=== PATIENT | male | born 1955 | race African-American/Black ===

== ENCOUNTER 2021-01-01 22:56 | Inpatient (IN) | payer MEDICARE, MEDICAID, SELFPAY ==
--- NOTE | ~2021-01-01 | XR_ITS ---
EXAMINATION: XR fl Dobhoff insert/rad w img DATE: 01/07/2021 14:16 INDICATION: Dobbhoff placement required for bowel prep and subsequent colonoscopy. TECHNIQUE: A Dobbhoff type feeding tube was advanced into the duodenum utilizing intermittent fluoroscopy. Final image demonstrates the feeding tube in position with the weighted tip at the expected location of th e ligament of Treitz. The tube was flushed with 10 mL sterile saline and fixed to the nares with adhe sive tape. 2 fluoroscopic images were recorded. The amount of fluoroscopy time used during this proce dure was 0.9 minutes. There were no immediate complications. Total DAP was 12.66 mGycm^2 FINDINGS/IMPRESSION: Successful fluoroscopy-guided Dobbhoff feeding tube placement with distal tip in the fourth portion o f the duodenum. Reviewed, dictated and finalized at location A.
--- NOTE | ~2021-01-01 | US_ITS ---
EXAMINATION: US paracentesis abd w/image DATE: 01/03/2021 14:51 INDICATION: Ascites. TECHNIQUE: The procedure and its risks and benefits were discussed with the patient. Potential risks discussed included bleeding and infection. The skin was prepped and draped in sterile fashion. 1% lid ocaine was used for local anesthesia. Under ultrasound guidance, a 5 Fr catheter with trochar was adv anced into the ascites in the right lower quadrant. Fluid was aspirated into vacuum bottles. The cath eter was removed, and a dressing was applied. There were no immediate complications. FINDINGS: Ultrasound images demonstrate ascites and the catheter within the fluid. IMPRESSION: 1. Successful ultrasound-guided paracentesis yielding 1150 mL of dark jose-colored fluid. Reviewed, dictated and finalized at location A. IMPRESSION: 1. Successful ultrasound-guided paracentesis yielding 1150 mL of dark jose-co lored fluid.
--- NOTE | ~2021-01-01 | MR_ITS ---
EXAMINATION: MR abdomen wo/w con DATE: 01/03/2021 07:22 INDICATION: Cirrhosis with multiple hepatic nodules TECHNIQUE: Magnetic resonance imaging (MRI) of the abdomen was performed without and with 18 mL Multi layla intravenous contrast. Sequences included coronal T2-weighted SS-FSE, coronal and axial FS 2D-F IESTA, axial STIR FSE, axial T2-weighted SS-FSE, axial T2-weighted FS SS-FSE, axial diffusion-weighte d SE, axial dual-echo T1-weighted FSPGR, and axial and coronal T1-weighted LAVA. Postcontrast axial T 1-weighted LAVA images were obtained in a time course. Postcontrast coronal T1-weighted LAVA images w ere obtained. COMPARISON: CT dated 01/02/2021 FINDINGS: Heart size is normal. No pericardial effusion. Very small left and trace right pleural effusions. Mod erate amount of ascites scattered throughout the abdomen and pelvis. Nodular cirrhotic liver. There a re multiple masslike regions scattered throughout primarily the right hepatic lobe in places becoming confluent. The largest of the more discrete masses measure between 4-6 cm in diameter. These are dis tinguishable from the surrounding liver by restricted diffusion, mildly increased T2 signal and mildl y decreased T1 signal. These demonstrate a heterogeneous enhancement pattern with peripheral rim enha ncement which begins near arterial phase and remains relatively hyperenhancing throughout the 10 laverne [address] delayed images. Centrally was the masses enhance to a similar degree to the background liver on th e arterial phase but with clear washout on the 5 and 10 minute delayed images. Again seen is thrombos is of the portal veins however assessment is more limited than on the CT due to motion artifact. Drdominic osborn paraesophageal collaterals are again identified. Gallbladder, spleen, pancreas, bilateral kidney s and left adrenal gland are normal. There is signal dropout at the previous noted 8 mm right adrenal nodule consistent with adenoma. No dilated bowel to suggest obstruction. Again seen is suggestion of some wall thickening at the cecum. Mild thoracolumbar dextrocurvature with multiple scattered Schmor l's nodes. Moderate thoracic and moderate to severe lumbar spondylosis. IMPRESSION: 1. Cirrhosis with multiple hepatic masses primarily the right hepatic lobe with imaging features cons istent with LI-RADS 4 lesions (probable hepatocellular carcinoma). Differential would include metastatic disease in the appropriate clinical setting. 2. 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 3. Moderate ascites. 4. Persistent wall thickening at the cecum which could represent hepatic colopathy, focal colitis or colon cancer. If not recently performed would consider colonoscopy for further evaluation. Reviewed, dictated and finalized at location A. IMPRESSION: 1. Cirrhosis with multiple hepatic masses primarily the right hepatic lobe with imaging features consistent with LI-RADS 4 lesions (probable hepatocellular carcinoma). Differential would include metastatic dise ase in the appropriate clinical setting. 2. 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 3. Moderate ascites. 4. Persistent wall thickening at the cecum which could represent hepatic colopa thy, focal colitis or colon cancer. If not recently performed would consider co lonoscopy for further evaluation.
--- NOTE | ~2021-01-01 | CT_ITS ---
EXAMINATION: CT abdomen pelvis w con DATE: 01/02/2021 03:30 INDICATION: Abdominal pain TECHNIQUE: Computed tomography (CT) of the abdomen and pelvis was performed with 100 mL Omnipaque-350 intravenous contrast. Automated exposure control and iterative reconstruction technique were employe d. The dose-length product was 432.41 mGy-cm. COMPARISON: None FINDINGS: Lung bases are clear. Heart size is normal. No pericardial or pleural effusion. Atherosclerotic coron dahlia artery calcification. Cirrhotic liver with surface nodularity consistent with cirrhosis. Heteroge neous hepatic enhancement with numerous hypoenhancing hepatic nodules. Liver, spleen, pancreas, bilat eral adrenal glands and left adrenal gland are normal. 8 mm right adrenal nodule statistically most l ikely to represent a adenoma. There is thrombosis of the main portal vein extending into the right he patic lobe. This appears near but not completely occlusive with small amount of contrast extending al kiya the periphery of the thrombus at the main portal vein. Dilated coronary vein with paraesophageal varices. Moderate amount of ascites throughout the abdomen and pelvis. Small bowel and appendix are n ormal. Focal wall thickening at the cecum. Partially decompressed bladder is normal. Prostatic calcif ications. No abscess or free intraperitoneal gas. No pathologically enlarged abdominal or pelvic lymp hadenopathy. Moderate thoracolumbar spondylosis with bridging osteophytes at multiple levels consiste nt with diffuse idiopathic skeletal hyperostosis (DISH). Multiple Schmorl's nodes and cystic endplate change throughout the visualized spine. No other suspicious lytic or blastic bone lesions. IMPRESSION: 1. Cirrhosis with numerous hepatic nodules. Differential would include regenerative nodules, primaril y liver cancer, metastatic disease or combination thereof. Consider further evaluation with multiphas e pre and postcontrast MRI dated 2. Portal venous thrombosis extending into the right hepatic lobe with collateral portosystemic shunt ing extending into the coronary vein and paraesophageal varices. 3. Moderate amount of ascites. 4. Focal wall thickening at the cecum. Differential includes colon cancer, hepatic colopathy or focal colitis which could be infectious, inflammatory or less likely ischemic in etiology. If not recently performed would consider colonoscopy for further evaluation. Reviewed, dictated and finalized at location A. IMPRESSION: 1. Cirrhosis with numerous hepatic nodules. Differential would include regenera tive nodules, primarily liver cancer, metastatic disease or combination thereof . Consider further evaluation with multiphase pre and postcontrast MRI dated 2. Portal venous thrombosis extending into the right hepatic lobe with collater al portosystemic shunting extending into the coronary vein and paraesophageal v arices. 3. Moderate amount of ascites. 4. Focal wall thickening at the cecum. Differential includes colon cancer, hepa tic colopathy or focal colitis which could be infectious, inflammatory or less likely ischemic in etiology. If not recently performed would consider colonosco py for further evaluation.
--- NOTE | ~2021-01-01 | XR_ITS ---
EXAMINATION: XR chest 1V portable EXAM DATE: 01/02/2021 03:06 INDICATION: Shortness of breath. TECHNIQUE: Portable AP frontal chest x-ray was obtained. Comparison is made to prior examination from 06/18/2017. FINDINGS: The lungs are clear. There are no pleural effusions. The cardiomediastinal silhouette is within normal limits. There is no pneumothorax suspected. The bones and soft tissues are unremarkab le. IMPRESSION: No acute cardiopulmonary findings. Reviewed, dictated and finalized at location A.
--- NOTE | ~2021-01-01 | US_ITS ---
EXAMINATION: US paracentesis abd w/image DATE: 01/06/2021 13:05 INDICATION: Ascites. TECHNIQUE: The procedure and its risks, benefits, and alternatives were discussed with the patient. P otential risks discussed included bleeding and infection. The skin was prepped and draped in sterile fashion. 1% lidocaine was used for local anesthesia. Under ultrasound guidance, a 5 Fr catheter with trochar was advanced into the ascites in the right upper quadrant. Fluid was aspirated. The catheter was removed, and a dressing was applied. There were no immediate complications. FINDINGS: Ultrasound images demonstrate ascites and the catheter within the fluid. IMPRESSION: 1. Successful ultrasound-guided paracentesis yielding 250 mL of jose-colored fluid. Reviewed, dictated and finalized at location A.
--- NOTE | ~2021-01-01 | CT_ITS ---
EXAMINATION: CTA chest PE protocol DATE: 01/02/2021 16:03 INDICATION: Shortness of breath. TECHNIQUE: Computed tomography angiography (CTA) of the chest was performed with 100 mL Omnipaque-350 intravenous contrast timed to evaluate the pulmonary arteries. Coronal maximum intensity projection 3D-reconstructions were created by the technologist. Automated exposure control and iterative reconst ruction technique were employed. The dose-length product was 486.83 mGy-cm. COMPARISON: CT abdomen and pelvis 01/02/2021 FINDINGS: The lungs demonstrate mild atelectasis. Calcified right hilar lymph nodes are consistent wi th old granulomatous disease. There is left atrial enlargement of the heart. There are coronary arter y calcifications. No pericardial effusion. There is no pulmonary embolus. The liver demonstrates hete rogeneous attenuation and a nodular surface contour, consistent with cirrhosis. There is a moderate v olume of ascites. There are bridging endplate osteophytes at multiple levels in the spine, consistent with diffuse idiopathic skeletal hyperostosis (DISH). There is severe cervical spondylosis. IMPRESSION: 1. No pulmonary embolus. 2. Moderate volume of ascites. Ultrasound-guided paracentesis is recommended. 3. Cirrhosis of the liver. Other liver findings seen on the prior CT are not well visualized due to t he early phase of contrast opacification. Reviewed, dictated and finalized at location A. IMPRESSION: 1. No pulmonary embolus. 2. Moderate volume of ascites. Ultrasound-guided paracentesis is recommended. 3. Cirrhosis of the liver. Other liver findings seen on the prior CT are not we ll visualized due to the early phase of contrast opacification.
--- NOTE | ~2021-01-01 | US_ITS ---
EXAMINATION: US biopsy liver DATE: 01/06/2021 13:06 INDICATION: Liver masses. TECHNIQUE: The procedure including the risks, benefits, and alternatives was discussed with the patie nt. Risks discussed included bleeding and infection. The patient understood the risks and agreed to p roceed. The skin overlying the liver was prepped and draped in usual sterile fashion. Anesthetic was administered with 1% lidocaine subcutaneously. An 18 gauge core biopsy needle was then used to obta in 4 core biopsy specimens under continuous sonographic guidance. The entry site was cleaned and dres sed. There were no immediate complications. FINDINGS: Ultrasound images demonstrate the needle in right hepatic lobe. IMPRESSION: 1. Ultrasound-guided core needle biopsy of ill-defined masses in right hepatic lobe. Reviewed, dictated and finalized at location A.
[2021-01-01 23:02] VITALS: BP 102/62; PULSE 79; RESP 18; TEMP 37.1; O2SAT 100
--- NOTE | 2021-01-01 23:08 | ECG_ITS ---
Measurements Intervals Spray Rate: 79 P: 62 MI: 116 QRS: 67 QRSD: 112 T: 1 QT: 408 QTc: 470 Interpretive Statements SINUS RHYTHM WITH SHORT MI INTERVAL INTRAVENTRICULAR CONDUCTION DELAY EARLY PRECORDIAL R/S TRANSITION BORDERLINE ST-T WAVE ABNORMALITY- INFERIOR LEADS BORDERLINE ECG Electronically Signed On 01-02-2021 6:30:11 CDT by Jason Martinez D.O.
[2021-01-01 23:31] LABS: Basophils Percent Auto 0.1 % (0.2-1.2); Eosinophils Percent Auto 0.2 % (0-4.4); Hematocrit 27.3 % (42.0-52.0); Hemoglobin 8.7 g/dL (14.0-18.0); Immature Granulocyte Absolute 0.04 K/mm3 (0.00-0.031); Immature Granulocyte Percent A 0.4 % (0-0.5); Lymphocytes Percent Auto 15.8 % (18.3-44.2); Mean Corpuscular HGB Conc 31.9 g/dl (32-36); Mean Corpuscular Hemoglobin 26.4 pg (26-34); Mean Platelet Volume 10.1 fl (7.4-10.4); Monocytes Absolute Auto 1.1 K/mm3 (0.1-0.6); Monocytes Percent Auto 10.9 % (2.6-8.5); Neutrophils Absolute Auto 7.4 K/mm3 (1.3-6.7); Neutrophils Percent Auto 72.6 % (45.5-73.1); Platelet Count Result 385 k/mm3 (150-375); Red Blood Count 3.29 M/mm3 (4.6-6.20); Red Cell Distribution Width 18.1 % (11.5-14.5); White Blood Count 10.1 K/mm3 (4.5-10.0)
[2021-01-01 23:42] LABS: Anion Gap 11 mmol/L (8-16); Blood Urea Nitrogen 15 mg/dL (9-20); Calcium 9.1 mg/dL (8.4-10.2); Carbon Dioxide 21 mmol/L (22-30); Chloride 104 mmol/L (98-107); Estimated CRCL calculation 80 ml/min; Estimated Glomerular Filt Rate > 60; Glucose 75 mg/dL (65-110); Potassium 4.4 mmol/L (3.4-5.0); Sodium 136 mmol/L (137-145)
[2021-01-02] VITALS (16 sets, daily range): BP systolic 108–121; BP diastolic 76–82; PULSE 73–80; RESP 14–20; TEMP 35.7–36.6; O2SAT 99–100; BMI 26.9
--- NOTE | 2021-01-02 | ECHO_ITS ---
Patient Info Name: Bam Jeffries Age: 65 years : 1955 Gender: Male Ht: 72 in Wt: 198 lbs BSA: 2.15 m2 HR: 71 bpm BP: 117 / 77 mmHg Technical Quality: Good Exam Date: 01/02/2021 2:53 PM Exam Location: [facility] Patient Status: Outpatient Admit Date: 01/02/2021 Staff Ordering Physician: Lilibeth Gusman MD Brake Lining Maker: Mirna Valladares RDCS Attending Provider: Lanette Jimenez MD Exam Type: CA echo doppler color flow Study Info Indications - CHF EVAL Complete two-dimensional, color flow and Doppler transthoracic echocardiogram is performed. Summary 1. Complete two-dimensional, color flow and Doppler transthoracic echocardiogram is performed. 2. Left ventricular chamber dimension is normal. 3. Left ventricular systolic function is normal, estimated at 65-70%. 4. There is mildly increased left ventricular wall thickness. 5. The left ventricular diastolic function is grade II diastolic dysfunction. 6. E/e' 8 is minimally elevated. 7. Left atrial chamber dimension is mildly enlarged. 8. There is moderate aortic valve sclerosis. 9. The mitral valve has moderately calcified annulus. 10. There is trace mitral valve regurgitation. 11. No pulmonary hypertension, estimated pulmonary arterial systolic pressure is 22 mmHg. Left Ventricle E/e' 8 is minimally elevated. Left ventricular chamber dimension is normal. Left ventricular systolic function is normal, estimated at 65-70%. There is mildly increased left ventricular wall thickness. The left ventricular diastolic function is grade II diastolic dysfunction. Right Ventricle Right ventricular chamber dimension is normal. Right ventricular systolic function is normal. Left Atria Left atrial chamber dimension is mildly enlarged. Right Atria Right atrial chamber dimension is normal. Aortic Valve The aortic valve is trileaflet. There is moderate aortic valve sclerosis. There is no aortic valve stenosis. There is no aortic valve regurgitation. Pulmonic Valve There is no pulmonic regurgitation. Mitral Valve The mitral valve has moderately calcified annulus. There is no mitral valve stenosis. There is trace mitral valve regurgitation. Tricuspid Valve There is no tricuspid valve regurgitation. No pulmonary hypertension, estimated pulmonary arterial systolic pressure is 22 mmHg. Pericardium/Pleural There is no pericardial effusion. Inferior Vena Cava Normal inferior vena cava with >50% collapse upon inspiration consistent with normal right atrial pressure, 5 mmHg. Aorta The aortic root size at the sinus of Valsalva is normal. Left Ventricular Outflow Tract Name Value Normal LVOT 2D LVOT Diameter 2.0 cm LVOT Doppler LVOT Peak Gradient 4 mmHg LVOT Mean Gradient 2 mmHg LVOT VTI 20 cm LVOT VTI/AV VTI Ratio 0.9 LVOT Stroke Volume 65 ml LVOT CO 4.9 l/min LVOT CI 2.3 l/min/m2 Pulmonic Valve ---
--- NOTE | 2021-01-02 02:34 | ED.GENADULT ---
HPI - General Adult General Chief complaint: Shortness of Breath/Dyspnea Stated complaint: SOB Time Seen by Provider: 01/02/21 02:08 History of Present Illness HPI narrative: Patient is a 65-year-old gentleman who presents the emergency department with chief complaint of shortness of breath. Patient reports he was recently admitted at [facility] after he had a GI bleed patient states over the last several days has been having increasing shortness of breath worse with exertion. Patient states that he has had brown stool but has been told before that he is anemic. Patient states he is on any blood thinners reports that he had a recent GI bleed and was seen at [facility]. Related Data Allergies Allergy/AdvReac Type Severity Reaction Status Date / Time No Known Allergies Allergy Unverified 06/18/17 17:56 Review of Systems Review of Systems: A 10 system review of systems was completed on the patient and is negative except for what is stated in the HPI. Nursing and ancillary documentation was reviewed. Exam Narrative: GENERAL: Well-appearing, well-nourished, and in no acute distress. HEAD: Normocephalic, atraumatic. EYES: PERRLA and EOMI. ENT: Nares clear, no rhinorrhea or epistaxis. Mucous membranes moist. NECK: Supple. CHEST: Clear to auscultation. No respiratory distress. HEART: Regular rate and rhythm. No murmur heard. Normal peripheral pulses. ABDOMEN: Soft, nontender, nondistended, normal active bowel sounds. : Patient has normal colored stool that is guaiac positive EXTREMITIES: Normal range of motion. No edema. SKIN: Warm, dry, no rash. NEURO: No focal deficits. Alert and oriented x3. PSYCH: Normal mood and affect. Course Vital Signs Vital signs: Vital Signs Temperature 37.1 C 01/01/21 23:02 Pulse Rate 79 01/01/21 23:02 Respiratory Rate 18 01/01/21 23:02 Blood Pressure 102/62 01/01/21 23:02 Pulse Oximetry 100 01/01/21 23:02 Temperature 37.1 C 01/01/21 23:02 Pulse Rate 78 01/02/21 02:13 Respiratory Rate 19 01/02/21 02:13 Blood Pressure 109/78 01/02/21 02:13 Pulse Oximetry 100 01/02/21 02:13 Medical Decision Making Vital Signs Vital Signs: Vital Signs Temperature 37.1 C 01/01/21 23:02 Pulse Rate 79 01/01/21 23:02 Respiratory Rate 18 01/01/21 23:02 Blood Pressure 102/62 01/01/21 23:02 Pulse Oximetry 100 01/01/21 23:02 Temperature 37.1 C 01/01/21 23:02 Pulse Rate 78 01/02/21 02:13 Respiratory Rate 19 01/02/21 02:13 Blood Pressure 109/78 01/02/21 02:13 Pulse Oximetry 100 01/02/21 02:13 Lab Data Result diagrams: 01/01/21 23:21 01/01/21 23:21 Labs: Lab Results 01/01/21 01/01/21 01/02/21 Range/Units 23:21 23:21 03:28 WBC 10.1 H (4.5-10.0) K/mm3 RBC 3.29 L (4.6-6.20) M/mm3 Hgb 8.7 L (14.0-18.0) g/dL Hct 27.3 L (42.0-52.0) % MCV 83.0 (80-100) fl MCH 26.4 (26-34) pg MCHC 31.9 L (32-36) g/dl RDW 18.1 H (11.5-14.5) % Plt Count 385 H (150-375) k/mm3 MPV 10.1 (7.4-10.4) fl Immature Gran % (Auto) 0.4 (0-0.5) % Neut % (Auto) 72.6 (45.5-73.1) % Lymph % (Auto) 15.8 L (18.3-44.2) % Burke % (Auto) 10.9 H (2.6-8.5) % Eos % (Auto) 0.2 (0-4.4) % Baso % (Auto) 0.1 L (0.2-1.2) % Lymph # (Auto) 1.60 (0.9-3.2) K/mm3 Burke # (Auto) 1.1 H (0.1-0.6) K/mm3 Eos # (Auto) 0.0 (0-0.3) K/mm3 Baso # (Auto) 0.0 (0.0-0.1) K/mm3 Abs Immat Gran (auto) 0.04 H (0.00-0.031) K/mm3 Absolute Neuts (auto) 7.4 H (1.3-6.7) K/mm3 Absolute Nucleated RBC 0.0 (0.0-0.012) K/mm3 Nucleated RBC % 0.0 (0.0-0.2) % PT 15.2 H (11.1-14.7) Seconds INR 1.2 APTT 33.5 (22.3-36.8) SECONDS Sodium 136 L (137-145) mmol/L Potassium 4.4 (3.4-5.0) mmol/L Chloride 104 (98-107) mmol/L Carbon Dioxide 21 L (22-30) mmol/L Anion Gap 11 (8-16) mmol/L BUN 15 (9-20) mg/dL Creat
--- NOTE | 2021-01-02 03:04 | PC.NURSE ---
pt to CT at this time.
[2021-01-02 03:49] LABS: Lipase 23 U/L (23-300)
[2021-01-02 03:51] LABS: Alanine Aminotransferase 28 U/L (4-50); Albumin Level 3.1 g/dL (3.5-5.1); Alkaline Phosphatase 158 U/L (38-126); Aspartate Amino Transferase 156 U/L (17-59); Bilirubin,Total 1.3 mg/dL (0.2-1.3); INR 1.2; Lactic Acid Reflex 1.5 mmol/L (0.7-2.1); Prothrombin Time 15.2 Seconds (11.1-14.7)
[2021-01-02 03:52] LABS: Partial Thromboplastin Time 33.5 SECONDS (22.3-36.8)
[2021-01-02 04:03] LABS: NT Pro B Type Natriuretic Pept 914 pg/mL (5-100); Troponin I < 0.012 ng/mL (0.000-0.034)
--- NOTE | 2021-01-02 07:01 | PC.NURSE ---
This patient, Bam Jeffries, was admitted to IMU Room 214-01 on 01/02/21 at 0620. Patient/family oriented to hospital policies and general routines including ID bracelet, bed and alarms, visiting hours, pain management, procedures, bathroom and other care routines, personal items, smoking policy, room service/diet, and visiting hours. Information on how to activate the Rapid Response Team has been discussed. Patient/Family are encouraged to report perceived risks to care and to ask questions if they do not understand what they are told or what they should do.
[2021-01-02 07:02] LABS: Hematocrit 27.2 % (42.0-52.0); Hemoglobin 8.6 g/dL (14.0-18.0)
[2021-01-02 07:25] LABS: Troponin I < 0.012 ng/mL (0.000-0.034)
--- NOTE | 2021-01-02 07:41 | PM.IMHP ---
H&P: HPI History of Present Illness Date/Time: 01/02/21 07:41 patient is 65-year-old male, who has never been to this facility before, presenting with 3 days of worsening dyspnea. He says that the symptoms are exertional, not associated with chest pain or hemoptysis. It is positional, and he also suffers form orthopnea. Denies fevers chills, no recent COVID exposure, does not know if he was vaccinated. No productive cough. Does complain of diffuse abdominal pain, however this is not new, although it has worsened over the last few days. Never had respiratory symptoms before. Never been told that he has heart failure. However of note, he is poor follow-up. No wheezing. Past medical history: Denies being diagnosed medical problems other than high blood pressure and vertigo Allergies: Not aware of any allergies that he has, though documented amlodipine lisinopril Medications. 12.5 b.i.d. Coreg, clonidine, meclizine, Zofran as needed Family history: Mom had recent surgery, does not know the details Social history: Denies any significant alcohol drug use, or tobacco use; never Smoker Surgeries: About 30 years ago he had a surgery on his right knee ER course: Vitals generally unremarkable, hemoglobin to 8.7, trended 8.6 Na 0.5 platelets elevated to 358; INR 1.2, sodium of 136, non gap acidosis ALP 158, AST of 156, LDH of 819, BNP of 914 Chief Complaint: exertional dyspnea Review of Systems Review of Systems: All systems reviewed & are unremarkable except as noted in HPI and below [facility] Family History Family History (Updated 01/02/21 @ 06:47 by Jacqueline Pan RN) Other Unknown family medical history Social History Social History Smoking status: Never smoker Alcohol intake: former Substance use: never Spiritual care concerns: No Meds Home Medications and Allergies Home Medications Medication Instructions Recorded Confirmed Type carvedilol 12.5 mg PO BID 01/02/21 01/02/21 History clonidine HCl 0.3 mg PO BID 01/02/21 01/02/21 History meclizine 12.5 mg PO TID 01/02/21 01/02/21 History ondansetron HCl 4 mg PO BID PRN 01/02/21 01/02/21 History Allergies Allergy/AdvReac Type Severity Reaction Status Date / Time amlodipine AdvReac Unknown Verified 01/02/21 06:12 lisinopril AdvReac Unknown Verified 01/02/21 06:12 Vital Signs Vital Signs - 24 hr 01/01/21 23:02 01/02/21 02:12 01/02/21 02:13 Temperature 98.8 F Pulse Rate 79 78 Respiratory Rate 18 19 Blood Pressure 102/62 109/78 Pulse Oximetry 100 100 100 01/02/21 05:27 01/02/21 06:26 01/02/21 07:21 Temperature 97.8 F 97.9 F Pulse Rate 77 80 80 Respiratory Rate 20 18 18 Blood Pressure 108/76 109/82 109/80 Pulse Oximetry 100 100 100 Exam Const: General: no acute distress Neck: Neck: no JVD Resp: Auscultation: clear to auscultation bilaterally Cardio: Rate: regular rate Rhythm: regular rhythm GI: GI Palp: Yes Soft to palpation and No Tenderness to palpation present (GI) H&P: Results Labs Labs: Short CBC 01/01/21 01/02/21 Range/Units 23:21 06:56 WBC 10.1 H (4.5-10.0) K/mm3 Hgb 8.7 L 8.6 L (14.0-18.0) g/dL Hct 27.3 L 27.2 L (42.0-52.0) % Plt Count 385 H (150-375) k/mm3 BMP 01/01/21 23:21 Sodium 136 L Potassium 4.4 Chloride 104 Carbon Dioxide 21 L BUN 15 Creatinine 0.90 Glucose 75 Calcium 9.1 Cardiac Enzymes 01/02/21 01/02/21 Range/Units 03:28 06:56 Troponin I < 0.012 < 0.012 (0.000-0.034) ng/mL Liver Function 01/02/21 Range/Units 03:28 Total Bilirubin 1.3 (0.2-1.3) mg/dL Direct Bilirubin 0.0 (0-0.3) mg/dL AST 156 H (17-59) U/L ALT 28 (4-50) U/L Alkaline Phosphatase 158 H (38-126) U/L Albumin 3.1 L (3.5-5.1) g/dL Assessment and Plan Assessment and plan (1) Normocytic anemia: Code(s): D64.9 - Anemia, unspecified Status: Acute (2) Dyspnea:
[2021-01-02 08:03] LABS: Immature Reticulocyte Fraction 29.2 % (3.0-15.9); Reticulocytes Absolute 0.07 B/L (32.2-175.7)
[2021-01-02 08:27] LABS: Lactate Dehydrogenase 819 U/L (313-618)
[2021-01-02 08:35] LABS: Transferrin 95 mg/dL (206-381)
[2021-01-02 09:40] LABS: Iron 21 ug/dL (49-181)
[2021-01-02 09:50] LABS: Percent Iron Saturation 11 % (20-50)
[2021-01-02 09:52] LABS: Troponin I < 0.012 ng/mL (0.000-0.034)
[2021-01-02 11:25] LABS: Hemoglobin 8.5 g/dL (14.0-18.0)
--- NOTE | 2021-01-02 11:32 | PC.NURSE ---
Updated MD on CT results.
[2021-01-02] MEDS: PANTOPRAZOLE SODIUM IV 40 MG VIAL IV PUSH (11:47)
[2021-01-02] MEDS: HYDROcodone/acetaminophen (*CRX) 5-325 MG TABLET 1 TAB PO ×2 (11:47→23:17)
[2021-01-02 15:31] LABS: Lactic Acid Reflex 1.3 mmol/L (0.7-2.1)
[2021-01-02 16:28] LABS: Hematocrit 29.4 % (42.0-52.0); Hemoglobin 8.8 g/dL (14.0-18.0)
--- NOTE | 2021-01-02 16:49 | WPDGICN ---
Assessment and Plan Assessment and plan (1) Normocytic anemia: Code(s): D64.9 - Anemia, unspecified Status: Acute Assessment and Plan: Patient with normochromic normocytic anemia. Has iron studies most consistent with anemia of chronic disease with low iron low TIBC elevated ferritin. Stool is confirmed to be Hemoccult positive. However he was identified as having bleeding ulcers within the last 2 weeks. Plan to keep patient on therapy for his ulcers. GI endoscopy may be warranted to exclude varices given the finding of cirrhosis. There is a question of a thick cecum on the CT scan which is very nonspecific. (2) Occult blood in stools: Code(s): R19.5 - Other fecal abnormalities Status: Acute Assessment and Plan: Patient found to have occult blood in stools. Along with normochromic normocytic anemia. Not unusual given his recent history of bleeding peptic ulcers. Old records will be requested from [facility]. (3) Dyspnea: Code(s): R06.00 - Dyspnea, unspecified Status: Acute Assessment and Plan: Dyspnea of anemia certain etiology may be related to ascites. Diagnostic paracentesis and therapeutic paracentesis may be beneficial. (4) Cirrhosis: Code(s): K74.60 - Unspecified cirrhosis of liver Status: Acute Assessment and Plan: Cirrhosis suggested by CT scan. Patient does have a distant history of alcohol abuse. Nodules in the liver suspicious for malignancy. Tumor markers will be obtained he likely would benefit from biopsy when ascites has been treated adequately. Diuresis may be appropriate. (5) Portal vein thrombosis: Code(s): I81 - Portal vein thrombosis Status: Acute Assessment and Plan: Portal vein thrombus evident on CT scan. Would defer anticoagulation till ulcers and bleeding has been adequately treated (6) Ascites: Code(s): R18.8 - Other ascites Status: Acute Assessment and Plan: ascites on CT scan likely contributes to patient's shortness of breath. Plan is for diagnostic and therapeutic paracentesis. (7) Peptic ulcer disease: Code(s): K27.9 - Peptic ulcer, site unspecified, unspecified as acute or chronic, without hemorrhage or perforation Status: Acute Assessment and Plan: Bleeding peptic ulcers identified in [facility] 2 weeks ago likely account for occult blood in stool in may contribute to anemia. Will maintain patient on proton pump inhibitor. Old records will be requested repeat endoscopy anticipated. GI Consult Note Consult date/time: 01/02/21 16:49 HPI: Bam Jeffries is a 65 year old male I am asked to see because of abnormal CT scan. Patient reports that he has been increasingly short of breath. Particularly over the last several weeks. Patient reports he was admitted to [facility] 2 weeks ago during that hospital stay was found to have intestinal bleeding. An endoscopy was performed in gastric ulcers identified. Patient states he was treated with medications. he was allowed to be sent home. Because of increasing shortness of breath he presented to our hospital and was admitted. He has never been at this institution before. patient denies prior history of peptic ulcer disease. He denies any ongoing alcohol abuse. He states they stopped drinking alcohol 3 years ago. Patient states his weight has remained stable. Denies any obvious blood in his stools. He has had no bleeding or vomiting. List of medications obtained in the emergency room does not include ulcer medications. In the ER he was found to have occult blood in his stools. Review of Systems Review of Systems: All systems reviewed & are unremarkable except as noted in HPI and below [facility] Family History Family History (Updated 01/02/21 @ 06:47 by Jacqueline Pan RN) Other Unknown family medical history Social History Social History (Reviewed 01/02/21 @ 02:35
[2021-01-02] MEDS: carvediloL 12.5 MG TABLET PO (20:31)
[2021-01-02] MEDS: FUROSEMIDE INJ 40 MG/4 ML VIAL IV PUSH (20:31)
[2021-01-02] MEDS: SPIRONOLACTONE 25 MG TABLET PO (20:31)
[2021-01-03] VITALS (18 sets, daily range): BP systolic 117–167; BP diastolic 82–92; PULSE 76–87; RESP 15–20; TEMP 35.8–36.4; O2SAT 99–100
[2021-01-03 00:11] LABS: Hemoglobin 9.1 g/dL (14.0-18.0)
[2021-01-03 00:14] LABS: Albumin Level 3.4 g/dL (3.5-5.1)
[2021-01-03 00:49] LABS: Carcinoembryonic Antigen 1.4 ng/mL (0.0-3.0)
[2021-01-03] MEDS: HYDROmorphone HCL INJ (*CRX) 1 MG/ML SYR IV PUSH (00:58)
[2021-01-03 06:39] LABS: Basophils Percent Auto 0.1 % (0.2-1.2); Eosinophils Percent Auto 0.1 % (0-4.4); Hematocrit 29.9 % (42.0-52.0); Hemoglobin 9.3 g/dL (14.0-18.0); Immature Granulocyte Absolute 0.05 K/mm3 (0.00-0.031); Immature Granulocyte Percent A 0.5 % (0-0.5); Lymphocytes Absolute Auto 1.33 K/mm3 (0.9-3.2); Lymphocytes Percent Auto 13.5 % (18.3-44.2); Mean Corpuscular HGB Conc 31.1 g/dl (32-36); Mean Corpuscular Hemoglobin 26.1 pg (26-34); Mean Platelet Volume 9.8 fl (7.4-10.4); Monocytes Absolute Auto 0.8 K/mm3 (0.1-0.6); Monocytes Percent Auto 7.9 % (2.6-8.5); Neutrophils Absolute Auto 7.7 K/mm3 (1.3-6.7); Neutrophils Percent Auto 77.9 % (45.5-73.1); Platelet Count Result 436 k/mm3 (150-375); Red Blood Count 3.56 M/mm3 (4.6-6.20); Red Cell Distribution Width 18.5 % (11.5-14.5); White Blood Count 9.9 K/mm3 (4.5-10.0)
[2021-01-03 06:55] LABS: Alanine Aminotransferase 32 U/L (4-50); Albumin Level 3.4 g/dL (3.5-5.1); Alkaline Phosphatase 188 U/L (38-126); Anion Gap 12 mmol/L (8-16); Aspartate Amino Transferase 157 U/L (17-59); Bilirubin,Total 1.3 mg/dL (0.2-1.3); Blood Urea Nitrogen 22 mg/dL (9-20); Calcium 9.4 mg/dL (8.4-10.2); Carbon Dioxide 23 mmol/L (22-30); Chloride 102 mmol/L (98-107); Estimated CRCL calculation 72 ml/min; Estimated Glomerular Filt Rate > 60; Glucose 98 mg/dL (65-110); Magnesium 2.2 mg/dL (1.6-2.3); Phosphorus 5.1 mg/dL (2.5-4.5); Potassium 4.1 mmol/L (3.4-5.0); Sodium 137 mmol/L (137-145)
--- NOTE | 2021-01-03 06:59 | PC.NURSE ---
At 2200 01/02/2021 patient reports refusal to drink Colyte preparation for GI testing following the A.M., Dr. Us made aware.
--- NOTE | 2021-01-03 07:01 | PC.NURSE ---
Patient to MRI with nurse assist and transportation assistant at 0640. Patient transported by stretcher.
--- NOTE | 2021-01-03 09:53 | PM.IMPN ---
Progress Note: A&P Assessment and Plan (1) Normocytic anemia: Code(s): D64.9 - Anemia, unspecified Status: Acute (2) Dyspnea: Code(s): R06.00 - Dyspnea, unspecified Status: Acute Additional Plan Thickening of the cecal wall: Nonspecific. Patient has not had colonoscopy as far as he can recall, And none documented at this facility. No family history colon cancer. Normocytic anemia: patient has been taking high-dose ibuprofen for several years, associated with lower back and hip pain. he was seen at a different facility about a week ago, or so, and they did an EGD which showed that he had multiple ulcers. Iron studies are consistent with anemia of chronic disease, as ferritin is elevated to 781, iron levels and TIBC are low. We will continue IV Protonix 40 daily. Hold off on all nsaids. Exertional dyspnea: patient has been told from prior facility, that he may have some problem with the left side of his heart pumping in adequately. in combination with the mild pulmonary edema seen on chest x-ray, And BNP of 914, pains picture of poorly controlled CHF, borderline decompensation. would be advisable to diurese , 40 IV daily. we will also continue Coreg from home, 12.5 b.i.d. when medical picture stable, would benefit from adding KALA-inhibitor. Ordered Echo. Hepatic cirrhosis with nodules: Per CT, unable to distinguish between primary cancer, metastatic disease, regenerative nodules. Will have to obtain a liver protocol MRI. We have ordered and will follow results. Portal vein thrombosis: would benefit from 6 months AC once we have completed any and all procedures. Liver protocol MRI. GI on consult. no lactic acidosis to indicate resultant ischemia. Paracentesis, follow results. Appreciate any additional GI input. Time Spent With Patient Time with patient: less than 15 minutes Subjective Date/time seen: 01/03/21 09:53 resting comfortably no acute complaints Review of Systems Review of Systems: All systems reviewed & are unremarkable except as noted in HPI and below Exam Const: General: no acute distress Neck: Neck: no JVD Resp: Effort & Inspection: normal respiratory effort Auscultation: clear to auscultation bilaterally Cardio: Rate: regular rate Rhythm: regular rhythm GI: GI Palp: Yes Soft to palpation and Yes Tenderness to palpation present (GI) Other: diffuse epigastric tenderness Objective Data Vital Signs Vital Signs: Vital Signs - 24 hr 01/02/21 10:00 01/02/21 12:00 01/02/21 16:00 Temperature 97.6 F Pulse Rate 76 74 74 Respiratory Rate 14 Blood Pressure 117/77 Pulse Oximetry 100 100 01/02/21 17:16 01/02/21 18:00 01/02/21 19:33 Temperature 96.4 F L 96.3 F L Pulse Rate 73 78 77 Respiratory Rate 20 20 Blood Pressure 114/77 121/81 Pulse Oximetry 100 100 01/02/21 20:00 01/02/21 20:31 01/02/21 22:00 Temperature Pulse Rate 78 79 80 Respiratory Rate Blood Pressure Pulse Oximetry 01/02/21 22:57 01/03/21 00:00 01/03/21 02:00 Temperature 97.3 F L Pulse Rate 78 79 Respiratory Rate 18 Blood Pressure 145/90 H Pulse Oximetry 99 100 01/03/21 04:00 01/03/21 06:00 01/03/21 09:22 Temperature 97.5 F L 97.3 F L Pulse Rate 87 87 76 Respiratory Rate 18 20 Blood Pressure 123/82 117/89 Pulse Oximetry 100 100 Intake/Output Intake/Output: Intake & Output 12/31/20 01/01/21 01/02/21 01/03/21 23:59 23:59 23:59 23:59 Intake Total 120 30 Output Total 300 750 Balance -180 -720 Meds/Results Medications: Active Medications Generic Name Dose Route Start Last Admin Trade Name Freq PRN Reason Stop Dose Admin Hydrocodone Bitart/Acetaminophen 1 tab 01/02/21 11:32 01/02/21 23:17 Hydrocodone/Acetaminophen (*Crx) 5-325 Mg Tablet PO 1 tab Q4H PRN Administration Pain Rated 6 or Greater Carvedilol 12.5 mg 01/02/21 21:00 01/02/21 20:31 Carvedilol 12.5 Mg Tablet PO 12.5 mg Q12HR [facility] Administratio
[2021-01-03] MEDS: carvediloL 12.5 MG TABLET PO ×2 (12:29→21:37)
[2021-01-03] MEDS: PANTOPRAZOLE SODIUM IV 40 MG VIAL IV PUSH (12:32)
--- NOTE | 2021-01-03 13:28 | WPDGIPROGNO ---
Progress Note: A&P Assessment and Plan (1) Cirrhosis: Code(s): K74.60 - Unspecified cirrhosis of liver Status: Acute Assessment and Plan: Patient with cirrhosis etiology unclear. Plan to obtain lab studies including hepatitis etc. Eventual liver biopsy particularly of the nodules present within the body of the liver may be attempted after ascitic fluid is drained. Hopefully early next week if not sooner. (2) Portal vein thrombosis: Code(s): I81 - Portal vein thrombosis Status: Acute Assessment and Plan: Portal vein thrombus evident by CT scan. Etiology unclear. Agree with anticoagulation but be should be deferred until after ascites is tapped. May also be beneficial to wait until after attempt is made to biopsy liver lesions. Patient recently diagnosed with peptic ulcer disease. Waiting several weeks would be prudent given this recent bleeding episode. (3) Ascites: Code(s): R18.8 - Other ascites Status: Acute Assessment and Plan: Patient with ascites by CT scan. Clinically not very distended. This may be unlikely to contribute to his shortness of breath giving the minimal distention. Abdominal paracenteses for diagnostic purposes to be performed today. (4) Peptic ulcer disease: Code(s): K27.9 - Peptic ulcer, site unspecified, unspecified as acute or chronic, without hemorrhage or perforation Status: Acute Assessment and Plan: Patient with peptic ulcer disease recently diagnosed to [facility]. Apparently had bleeding at that time. This likely accounts for occult blood in stool and modest anemia. Continue patient on PPI therapy at present. Old records are being requested. Patient refuses follow-up EGD at present. (5) Occult blood in stools: Code(s): R19.5 - Other fecal abnormalities Status: Acute Assessment and Plan: Occult blood in stool noted at the time of presentation. Likely related to recent bleeding from peptic ulcer disease. (6) Dyspnea: Code(s): R06.00 - Dyspnea, unspecified Status: Acute Assessment and Plan: Patient very short of breath on presentation. He appears improved today. Etiology unclear. Ascites may contribute but he appears to have very small amount of ascites clinically. (7) Anemia: Qualifiers: Anemia type: unspecified type Qualified Code(s): D64.9 - Anemia, unspecified Code(s): D64.9 - Anemia, unspecified Status: Acute Assessment and Plan: Ascites appears to be multifactorial. Possibly from recent bleeding. Iron studies suggest anemia of chronic disease. Subjective Date/time seen: 01/03/21 13:28 Patient feels much less short of breath today. He refuses GI endoscopy including EGD and colonoscopy. States gastric ulcerations were identified 2 weeks ago at [facility]. Abdominal paracentesis not yet performed today. Diagnosis of cirrhosis is new to this patient he was unaware of this previously. He denies significant alcohol intake. Review of Systems Review of Systems: All systems reviewed & are unremarkable except as noted in HPI and below Exam Narrative: Physical exam reveals patient to be alert. Comfortable at rest. HEENT exam reveals no significant icterus. Lungs are clear. Heart without murmur. Abdomen soft liver 2 fingerbreadths below the right costal margin smooth nontender. Objective Data Vital Signs Vital Signs: Vital Signs - 24 hr 01/02/21 16:00 01/02/21 17:16 01/02/21 18:00 Temperature 96.4 F L Pulse Rate 74 73 78 Respiratory Rate 20 Blood Pressure 114/77 Pulse Oximetry 100 100 01/02/21 19:33 01/02/21 20:00 01/02/21 20:31 Temperature 96.3 F L Pulse Rate 77 78 79 Respiratory Rate 20 Blood Pressure 121/81 Pulse Oximetry 100 01/02/21 22:00 01/02/21 22:57 01/03/21 00:00 Temperature 97.3 F L Pulse Rate 80 78 Respiratory Rate 18 Blood Pressure 145/90 H Pulse Oxi
[2021-01-03] MEDS: FUROSEMIDE INJ 40 MG/4 ML VIAL IV PUSH (13:49)
[2021-01-03] MEDS: SPIRONOLACTONE 25 MG TABLET PO ×2 (13:49→16:26)
[2021-01-03] MEDS: ONDANSETRON HCL ODT 4 MG TABLET PO (16:26)
[2021-01-03] MEDS: HYDROcodone/acetaminophen (*CRX) 5-325 MG TABLET 1 TAB PO (16:26)
[2021-01-03 17:10] LABS: Source Peritoneal Fluid Peritoneal Fluid
[2021-01-03 17:12] LABS: Appearance Peritoneal Fluid Hazy (Clear); Color Peritoneal Fluid Yellow (Colorless)
[2021-01-03 17:14] LABS: Lymphocytes Peritoneal Fluid 52 %; Monocytes Peritoneal Fluid 7 %; Neutrophils Peritoneal Fluid 16 % (0-25)
[2021-01-03 17:15] LABS: Eosinophils Peritoneal Fluid 1 %
[2021-01-03 17:16] LABS: Macrophages Peritoneal Fluid 24 %
--- NOTE | 2021-01-03 17:52 | PC.NURSE ---
[address] Gusman per patient request. Dr. Gusman will be making rounds in the IMU and will stop to see patient. Relayed information to patient.
[2021-01-03] MEDS: HYDROcodone/acetaminophen (*CRX) 10-325 MG TABLET 1 TAB PO (21:36)
[2021-01-04] VITALS (15 sets, daily range): BP systolic 124–152; BP diastolic 86–96; PULSE 71–88; RESP 16–18; TEMP 36–36.4; O2SAT 98–100
[2021-01-04] MEDS: HYDROcodone/acetaminophen (*CRX) 10-325 MG TABLET 1 TAB PO ×3 (04:58→13:12)
--- NOTE | 2021-01-04 08:28 | PM.IMPN ---
Progress Note: A&P Assessment and Plan (1) Normocytic anemia: Code(s): D64.9 - Anemia, unspecified Status: Acute (2) Dyspnea: Code(s): R06.00 - Dyspnea, unspecified Status: Acute Additional Plan Hepatic cirrhosis with nodules: Per CT, unable to distinguish between primary cancer, metastatic disease, regenerative nodules. Per GI, possibility of liver biopsy based on how the nodules look after draining ascitic fluid. Follow ascites analysis results. Liver MR showinf LI-RADS 4, probable HCC. Portal vein thrombosis: would benefit from 6 months AC. However as noted by GI, several reasons to defer for now incl possibility of liver biopsy, recent ulcers. 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 Will discuss. Thickening of the cecal wall: Nonspecific. Patient has not had colonoscopy as far as he can recall, And none documented at this facility. No family history colon cancer. Normocytic anemia: patient has been taking high-dose ibuprofen for several years, associated with lower back and hip pain. he was seen at a different facility about a week ago, or so, and they did an EGD which showed that he had multiple ulcers. Iron studies are consistent with anemia of chronic disease, as ferritin is elevated to 781, iron levels and TIBC are low. We will continue IV Protonix 40 daily. Hold off on all nsaids. Refusing follow-up EGD currently. Exertional dyspnea: G2 DD, preserved EF. in combination with the mild pulmonary edema seen on chest x-ray, And BNP of 914, pains picture of poorly controlled CHF, borderline decompensation. Symptoms greatly improved since diuresing here. Transition to po lasix. continue Coreg from home, 12.5 b.i.d. add maria e inhibitor as tolerated by bp. Time Spent With Patient Time with patient: less than 15 minutes Subjective Date/time seen: 01/04/21 08:28 some abdominal pain otherwise no chnages since yesterday Review of Systems Review of Systems: All systems reviewed & are unremarkable except as noted in HPI and below Exam Const: General: no acute distress Neck: Neck: no JVD Resp: Effort & Inspection: normal respiratory effort Auscultation: clear to auscultation bilaterally Cardio: Rate: regular rate Rhythm: regular rhythm GI: GI Palp: Yes Soft to palpation and Yes Tenderness to palpation present (GI) Other: epigastric tenderness Objective Data Vital Signs Vital Signs: Vital Signs - 24 hr 01/03/21 09:22 01/03/21 12:00 01/03/21 12:29 Temperature 97.3 F L Pulse Rate 76 78 78 Respiratory Rate 20 Blood Pressure 117/89 Pulse Oximetry 100 100 01/03/21 12:54 01/03/21 14:00 01/03/21 16:00 Temperature 97.0 F L Pulse Rate 78 76 84 Respiratory Rate 18 18 Blood Pressure 149/91 H Pulse Oximetry 100 100 01/03/21 17:39 01/03/21 18:00 01/03/21 19:55 Temperature 96.5 F L 97 F L Pulse Rate 77 78 84 Respiratory Rate 18 15 Blood Pressure 167/92 H 142/90 H Pulse Oximetry 100 100 01/03/21 20:00 01/03/21 21:09 01/03/21 21:37 Temperature Pulse Rate 87 85 78 Respiratory Rate 15 18 Blood Pressure Pulse Oximetry 100 99 01/03/21 22:00 01/04/21 00:00 01/04/21 02:00 Temperature 96.8 F L Pulse Rate 80 80 71 Respiratory Rate 16 Blood Pressure 124/86 Pulse Oximetry 100 01/04/21 04:00 01/04/21 06:00 Temperature 97.5 F L Pulse Rate 72 81 Respiratory Rate 16 Blood Pressure 141/86 H Pulse Oximetry 100 Intake/Output Intake/Output: Intake & Output 01/01/21 01/02/21 01/03/21 01/04/21 23:59 23:59 23:59 23:59 Intake Total 120 150 300 Output Total 300 9675 420 Balance -180 -2565 -120 Meds/Results Medications: Active Medications Generic Name Dose Route Start Last Admin Trade Name Freq PRN Reason Stop Dose Admin Hydrocodone Bitart/Acetaminophen 1 tab 01/03/21 18:33 01/04/21 04:58 Hydrocodone/Acetaminophen (*Crx) 10-325 Mg Tablet PO 1 tab Q4H PRN Administration Pain Rated 7-10
[2021-01-04] MEDS: FUROSEMIDE INJ 40 MG/4 ML VIAL IV PUSH (09:35)
[2021-01-04] MEDS: carvediloL 12.5 MG TABLET PO ×2 (09:35→20:20)
--- NOTE | 2021-01-04 09:36 | WPDGIPROGNO ---
Progress Note: A&P Assessment and Plan (1) Peptic ulcer disease: Code(s): K27.9 - Peptic ulcer, site unspecified, unspecified as acute or chronic, without hemorrhage or perforation Status: Acute Assessment and Plan: Patient with peptic ulcer disease. Identified by EGD at [facility]. Plan to continue PPI therapy. Avoid nonsteroidal anti-inflammatory agents. Ulcers likely account for occult blood in stool. Patient refusing endoscopy currently. Follow-up in couple months may be beneficial if he agrees. Also given opportunity to look for varices. (2) Cirrhosis: Code(s): K74.60 - Unspecified cirrhosis of liver Status: Acute Assessment and Plan: Patient with cirrhosis of liver evident on CT scan. Multiple liver nodules noted. On CT scan malignancy cannot be excluded. CT-guided biopsy would be beneficial and hopefully we can obtain this 1st part of the week. Now that paracentesis is been accomplished. Patient does have a distant history of alcohol intake but none recently. Alpha fetoprotein level pending. (3) Ascites: Code(s): R18.8 - Other ascites Status: Acute Assessment and Plan: Abdominal paracentesis performed. More than 1L of ascitic fluid removed. Cultures pending. Likely related to cirrhosis. Would continue diuretics. Increase Aldactone and perhaps decrease Lasix. (4) Portal vein thrombosis: Code(s): I81 - Portal vein thrombosis Status: Acute Assessment and Plan: Portal vein thrombus evident on CT scan. Anticoagulation not a bad idea ultimately but be should be deferred until after biopsies are accomplished. (5) Anemia: Qualifiers: Anemia type: unspecified type Qualified Code(s): D64.9 - Anemia, unspecified Code(s): D64.9 - Anemia, unspecified Status: Acute Assessment and Plan: Patient with anemia of anemia chronic disease evident by iron studies. Patient has had recent GI bleeding from ulcer disease EGD several weeks ago [facility] apparently was because of bleeding. No active bleeding evident at this time. Subjective Date/time seen: 01/04/21 09:36 Patient comfortable this morning. Remains less short of breath. Had abdominal paracentesis with more than a L withdrawn yesterday. He denies abdominal pain. Review of Systems Review of Systems: All systems reviewed & are unremarkable except as noted in HPI and below Exam Narrative: Physical exam reveals patient comfortable at rest. Lying in bed. HEENT exam reveals no significant icterus. Lungs are clear to auscultation and percussion. Heart is without murmur or extra sounds. Abdomen bowel sounds present soft mild hepatomegaly with soft liver edge noted nontender. Objective Data Vital Signs Vital Signs: Vital Signs - 24 hr 01/03/21 12:00 01/03/21 12:29 01/03/21 12:54 Temperature 97.0 F L Pulse Rate 78 78 78 Respiratory Rate 18 Blood Pressure 149/91 H Pulse Oximetry 100 100 01/03/21 14:00 01/03/21 16:00 01/03/21 17:39 Temperature 96.5 F L Pulse Rate 76 84 77 Respiratory Rate 18 18 Blood Pressure 167/92 H Pulse Oximetry 100 100 01/03/21 18:00 01/03/21 19:55 01/03/21 20:00 Temperature 97 F L Pulse Rate 78 84 87 Respiratory Rate 15 15 Blood Pressure 142/90 H Pulse Oximetry 100 100 01/03/21 21:09 01/03/21 21:37 01/03/21 22:00 Temperature Pulse Rate 85 78 80 Respiratory Rate 18 Blood Pressure Pulse Oximetry 99 01/04/21 00:00 01/04/21 02:00 01/04/21 04:00 Temperature 96.8 F L 97.5 F L Pulse Rate 80 71 72 Respiratory Rate 16 16 Blood Pressure 124/86 141/86 H Pulse Oximetry 100 100 01/04/21 06:00 01/04/21 08:00 Temperature 97.1 F L Pulse Rate 81 77 Respiratory Rate 18 Blood Pressure 140/90 Pulse Oximetry 100 Intake/Output Intake/Output: Intake & Output 01/01/21 01/02/21 01/03/21 01/04/21 23:59 23:59 23:59 23:59 Intake Total 120 150 300 Output Total 300
[2021-01-04] MEDS: PANTOPRAZOLE SODIUM IV 40 MG VIAL IV PUSH (09:39)
[2021-01-04 11:00] LABS: Hepatitis B Surface Antigen Negative (Negative)
[2021-01-04 11:06] LABS: HAV RESULT Negative (Negative); Hepatitis B Core IgM Result Negative (Negative)
[2021-01-04 11:12] LABS: Haptoglobin 309 mg/dL (43-212)
[2021-01-04 11:17] LABS: Hepatitis C Virus Antibody Negative (Negative)
[2021-01-04] MEDS: SPIRONOLACTONE 50 MG TABLET PO ×2 (13:13→18:36)
[2021-01-04] MEDS: ONDANSETRON HCL ODT 4 MG TABLET PO (13:17)
[2021-01-04] MEDS: HYDROmorphone HCL INJ (*CRX) 1 MG/ML SYR 0.5 MG IV PUSH ×2 (14:34→18:37)
[2021-01-05] VITALS (19 sets, daily range): BP systolic 117–135; BP diastolic 71–95; PULSE 83–95; RESP 16–18; TEMP 36.2–37; O2SAT 98–100
[2021-01-05] MEDS: HYDROmorphone HCL INJ (*CRX) 1 MG/ML SYR 0.5 MG IV PUSH ×3 (04:23→22:05)
[2021-01-05 04:55] LABS: Basophils Percent Auto 0.1 % (0.2-1.2); Eosinophils Percent Auto 0.1 % (0-4.4); Hematocrit 31.3 % (42.0-52.0); Hemoglobin 9.9 g/dL (14.0-18.0); Immature Granulocyte Absolute 0.08 K/mm3 (0.00-0.031); Immature Granulocyte Percent A 0.9 % (0-0.5); Lymphocytes Absolute Auto 0.76 K/mm3 (0.9-3.2); Lymphocytes Percent Auto 8.2 % (18.3-44.2); Mean Corpuscular HGB Conc 31.6 g/dl (32-36); Mean Corpuscular Hemoglobin 25.6 pg (26-34); Mean Corpuscular Volume 80.9 fl (80-100); Mean Platelet Volume 9.3 fl (7.4-10.4); Monocytes Absolute Auto 0.7 K/mm3 (0.1-0.6); Monocytes Percent Auto 7.6 % (2.6-8.5); Neutrophils Absolute Auto 7.7 K/mm3 (1.3-6.7); Neutrophils Percent Auto 83.1 % (45.5-73.1); Nucleated Red Blood Cells Perc 0.2 % (0.0-0.2); Platelet Count Result 416 k/mm3 (150-375); Red Blood Count 3.87 M/mm3 (4.6-6.20); Red Cell Distribution Width 18.6 % (11.5-14.5); White Blood Count 9.3 K/mm3 (4.5-10.0)
[2021-01-05 05:23] LABS: Alanine Aminotransferase 205 U/L (4-50); Albumin Level 3.4 g/dL (3.5-5.1); Alkaline Phosphatase 252 U/L (38-126); Anion Gap 9 mmol/L (8-16); Bilirubin,Total 1.4 mg/dL (0.2-1.3); Blood Urea Nitrogen 32 mg/dL (9-20); Calcium 9.2 mg/dL (8.4-10.2); Carbon Dioxide 26 mmol/L (22-30); Chloride 101 mmol/L (98-107); Estimated CRCL calculation 61 ml/min; Estimated Glomerular Filt Rate > 60; Glucose 85 mg/dL (65-110); Magnesium 2.2 mg/dL (1.6-2.3); Potassium 4.6 mmol/L (3.4-5.0); Sodium 136 mmol/L (137-145)
[2021-01-05 05:47] LABS: Aspartate Amino Transferase 1326 U/L (17-59)
--- NOTE | 2021-01-05 08:23 | PM.IMPN ---
Progress Note: A&P Assessment and Plan (1) Normocytic anemia: Code(s): D64.9 - Anemia, unspecified Status: Acute (2) Dyspnea: Code(s): R06.00 - Dyspnea, unspecified Status: Acute (3) Portal vein thrombosis: Code(s): I81 - Portal vein thrombosis Status: Acute (4) Cirrhosis: Code(s): K74.60 - Unspecified cirrhosis of liver Status: Acute (5) Ascites: Code(s): R18.8 - Other ascites Status: Acute Additional Plan Hepatic cirrhosis with nodules: Per CT, unable to distinguish between primary cancer, metastatic disease, regenerative nodules. Per GI, possibility of liver biopsy based on how the nodules look after draining ascitic fluid. Follow ascites analysis results, and hepatitis panel. Liver MR showing LI-RADS 4, probable HCC. Plan for liver biopsy when deemed appropriate by GI. Portal vein thrombosis: would benefit from 6 months AC. However as noted by GI, several reasons to defer for now incl possibility of liver biopsy, recent ulcers. 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 Will discuss. Normocytic anemia: patient has been taking high-dose ibuprofen for several years, associated with lower back and hip pain. he was seen at a different facility about a week ago, or so, and they did an EGD which showed that he had multiple ulcers. Iron studies are consistent with anemia of chronic disease, as ferritin is elevated to 781, iron levels and TIBC are low. We will continue IV Protonix 40 daily. Hold off on all nsaids. Refusing follow-up EGD currently. Exertional dyspnea: G2 DD, preserved EF. in combination with the mild pulmonary edema seen on chest x-ray, And BNP of 914, pains picture of poorly controlled CHF, borderline decompensation. Symptoms greatly improved since diuresing here. Transition to po lasix. continue Coreg from home, 12.5 b.i.d. add maria e inhibitor as tolerated by bp. Time Spent With Patient Time with patient: less than 15 minutes Subjective Date/time seen: 01/05/21 08:23 discussed likely diagnoses and possibility of malignancy with him he is very disturbed, and we will continue discussion with him symptomatically abdominal pain continues to be a problem no chest pain or resp symptoms; no fever Review of Systems Review of Systems: All systems reviewed & are unremarkable except as noted in HPI and below Exam Const: General: no acute distress Neck: Neck: no JVD Resp: Effort & Inspection: normal respiratory effort Auscultation: clear to auscultation bilaterally Cardio: Rate: regular rate Rhythm: regular rhythm GI: GI Palp: Yes Soft to palpation and No Tenderness to palpation present (GI) Objective Data Vital Signs Vital Signs: Vital Signs - 24 hr 01/04/21 09:35 01/04/21 10:00 01/04/21 12:00 Temperature 97.4 F L Pulse Rate 78 76 78 Respiratory Rate 18 Blood Pressure 152/96 H Pulse Oximetry 98 01/04/21 14:00 01/04/21 16:00 01/04/21 18:00 Temperature 97.1 F L Pulse Rate 80 81 83 Respiratory Rate 16 Blood Pressure 137/91 H Pulse Oximetry 100 01/04/21 19:54 01/04/21 20:00 01/04/21 20:20 Temperature 97.5 F L Pulse Rate 83 84 84 Respiratory Rate 16 16 Blood Pressure 148/94 H Pulse Oximetry 100 100 01/04/21 22:00 01/05/21 00:00 01/05/21 02:00 Temperature 97.8 F Pulse Rate 84 83 87 Respiratory Rate 16 Blood Pressure 133/95 H Pulse Oximetry 99 01/05/21 04:00 01/05/21 05:39 01/05/21 06:38 Temperature 97.1 F L 97.4 F L Pulse Rate 87 88 87 Respiratory Rate 16 16 Blood Pressure 135/87 128/93 H Pulse Oximetry 100 100 Intake/Output Intake/Output: Intake & Output 01/02/21 01/03/21 01/04/21 01/05/21 23:59 23:59 23:59 23:59 Intake Total 120 150 820 120 Output Total 300 9645 1370 370 Balance -180 -2565 -550 -250 Meds/Results Medications: Active Medications Generic Name Dose Route Start Last Admin Trade Name Freq PRN Reason Stop Dose Admin Hydrocod
[2021-01-05] MEDS: FUROSEMIDE 40 MG TABLET PO (08:25)
[2021-01-05] MEDS: carvediloL 12.5 MG TABLET PO ×2 (08:26→19:52)
[2021-01-05] MEDS: SPIRONOLACTONE 50 MG TABLET PO ×2 (08:27→17:54)
[2021-01-05] MEDS: PANTOPRAZOLE SODIUM IV 40 MG VIAL IV PUSH (08:28)
--- NOTE | 2021-01-05 09:14 | WPDGIPROGNO ---
Progress Note: A&P Assessment and Plan (1) Liver masses: Code(s): R16.0 - Hepatomegaly, not elsewhere classified Status: Acute Assessment and Plan: Liver lesions evident on CT scan. Unable to be determined by CT scan. Liver biopsy should be accomplished hopefully we can do this tomorrow. Patient is status post paracenteses Wednesday with a L withdrawn. (2) Cirrhosis: Code(s): K74.60 - Unspecified cirrhosis of liver Status: Acute Assessment and Plan: Patient with cirrhosis of the liver evident on CT scan. He does have a distant history of alcohol use. Liver lesions may be contributing to this. Biopsy anticipated tomorrow. (3) Ascites: Code(s): R18.8 - Other ascites Status: Acute Assessment and Plan: Ascites evident on CT scan likely secondary to cirrhosis. Paracenteses revealed transit date of ascites. Plan is for diuresis initially with Aldactone supplement with Lasix. Decrease Lasix as Aldactone is increased. Continue monitor electrolytes. Low-salt diet. (4) Portal vein thrombosis: Code(s): I81 - Portal vein thrombosis Status: Acute Assessment and Plan: Portal vein thrombus noted on CT scan. This is likely chronic. Given the biopsies I would defer anticoagulation. Ultimately 6 months of anticoagulation might be okay. (5) Peptic ulcer disease: Code(s): K27.9 - Peptic ulcer, site unspecified, unspecified as acute or chronic, without hemorrhage or perforation Status: Acute Assessment and Plan: Patient recently hospitalized at [facility] with bleeding gastric ulcers. This accounts for his occult blood in stool and perhaps anemia. Continue PPI therapy. Avoid NSAIDs. Continue monitor hemoglobin. (6) Normocytic anemia: Code(s): D64.9 - Anemia, unspecified Status: Acute Assessment and Plan: Iron studies most consistent with anemia of chronic disease. Likely he has a chronic anemia. May have worsened when he had his recent GI bleeding. Would monitor conservatively at this point. He has refused follow-up endoscopy offered. Subjective Date/time seen: 01/05/21 09:14 Patient alert and comfortable this morning. Remains less short of breath. Had paracenteses Wednesday. No signs of GI bleeding. Denies abdominal pain Review of Systems Review of Systems: All systems reviewed & are unremarkable except as noted in HPI and below Exam Narrative: Physical exam reveals patient be alert comfortable at rest. HEENT exam unremarkable. Lungs are clear. Heart without murmur. Abdomen soft nontender mild hepatomegaly just below the right costal margin. Objective Data Vital Signs Vital Signs: Vital Signs - 24 hr 01/04/21 09:35 01/04/21 10:00 01/04/21 12:00 Temperature 97.4 F L Pulse Rate 78 76 78 Respiratory Rate 18 Blood Pressure 152/96 H Pulse Oximetry 98 01/04/21 14:00 01/04/21 16:00 01/04/21 18:00 Temperature 97.1 F L Pulse Rate 80 81 83 Respiratory Rate 16 Blood Pressure 137/91 H Pulse Oximetry 100 01/04/21 19:54 01/04/21 20:00 01/04/21 20:20 Temperature 97.5 F L Pulse Rate 83 84 84 Respiratory Rate 16 16 Blood Pressure 148/94 H Pulse Oximetry 100 100 01/04/21 22:00 01/05/21 00:00 01/05/21 02:00 Temperature 97.8 F Pulse Rate 84 83 87 Respiratory Rate 16 Blood Pressure 133/95 H Pulse Oximetry 99 01/05/21 04:00 01/05/21 05:39 01/05/21 06:38 Temperature 97.1 F L 97.4 F L Pulse Rate 87 88 87 Respiratory Rate 16 16 Blood Pressure 135/87 128/93 H Pulse Oximetry 100 100 01/05/21 08:26 Temperature Pulse Rate 89 Respiratory Rate Blood Pressure Pulse Oximetry Intake/Output Intake/Output: Intake & Output 01/02/21 01/03/21 01/04/21 01/05/21 23:59 23:59 23:59 23:59 Intake Total 120 150 820 120 Output Total 300 8115 1370 370 Balance -180 -2565 -550 -250 Meds/Results Medications: Active Medications Generic Name Dose Route Star
[2021-01-05 18:16] LABS: Glucose Point of Care 85 mg/dl (65-105)
[2021-01-05] MEDS: HYDROcodone/acetaminophen (*CRX) 10-325 MG TABLET 1 TAB PO (19:51)
[2021-01-06] VITALS (18 sets, daily range): BP systolic 98–127; BP diastolic 68–84; PULSE 8–98; RESP 14–18; TEMP 36.3–36.7; O2SAT 97–100
[2021-01-06 05:28] LABS: Alanine Aminotransferase 293 U/L (4-50); Albumin Level 3.5 g/dL (3.5-5.1); Alkaline Phosphatase 269 U/L (38-126); Anion Gap 11 mmol/L (8-16); Bilirubin,Total 1.5 mg/dL (0.2-1.3); Blood Urea Nitrogen 44 mg/dL (9-20); Calcium 8.9 mg/dL (8.4-10.2); Carbon Dioxide 24 mmol/L (22-30); Chloride 102 mmol/L (98-107); Estimated CRCL calculation 39 ml/min; Estimated Glomerular Filt Rate 43; Glucose 97 mg/dL (65-110); Magnesium 2.4 mg/dL (1.6-2.3); Phosphorus 5.6 mg/dL (2.5-4.5); Potassium 4.9 mmol/L (3.4-5.0); Sodium 137 mmol/L (137-145)
[2021-01-06 06:08] LABS: Aspartate Amino Transferase 1602 U/L (17-59)
[2021-01-06 06:45] LABS: Hematocrit 28.9 % (42.0-52.0); Hemoglobin 9.6 g/dL (14.0-18.0); Mean Corpuscular HGB Conc 33.2 g/dl (32-36); Mean Corpuscular Hemoglobin 26.1 pg (26-34); Mean Corpuscular Volume 78.5 fl (80-100); Mean Platelet Volume 9.6 fl (7.4-10.4); Platelet Count Result 335 k/mm3 (150-375); Red Blood Count 3.68 M/mm3 (4.6-6.20); Red Cell Distribution Width 18.5 % (11.5-14.5); White Blood Count 10.1 K/mm3 (4.5-10.0)
[2021-01-06] MEDS: PANTOPRAZOLE SODIUM IV 40 MG VIAL IV PUSH (08:06)
[2021-01-06] MEDS: FUROSEMIDE 40 MG TABLET PO (08:07)
[2021-01-06] MEDS: HYDROcodone/acetaminophen (*CRX) 10-325 MG TABLET 1 TAB PO ×3 (08:07→17:09)
[2021-01-06] MEDS: SPIRONOLACTONE 50 MG TABLET PO ×2 (08:09→17:09)
[2021-01-06] MEDS: carvediloL 12.5 MG TABLET PO ×2 (08:09→21:36)
[2021-01-06 08:10] LABS: Band Neutrophils Percent 5 % (0-6); Monocytes Percent Manual 4 % (3-9); Neutrophils Absolute Manual 8.88 K/mm3 (1.3-6.7); Neutrophils Percent Manual 83 % (46-73); Platelet Estimate Adequate (Adequate); Total Cells Counted 100
[2021-01-06 08:11] LABS: Anisocytosis 1+ (NORMAL); Hypochromasia 1+ (NORMAL); Poikilocytosis 1+ (NORMAL)
[2021-01-06 08:12] LABS: Target Cells 1+ (NORMAL)
--- NOTE | 2021-01-06 08:58 | PM.IMPN ---
Progress Note: A&P Assessment and Plan (1) Normocytic anemia: Code(s): D64.9 - Anemia, unspecified Status: Acute (2) Dyspnea: Code(s): R06.00 - Dyspnea, unspecified Status: Acute (3) Portal vein thrombosis: Code(s): I81 - Portal vein thrombosis Status: Acute (4) Cirrhosis: Code(s): K74.60 - Unspecified cirrhosis of liver Status: Acute (5) Ascites: Code(s): R18.8 - Other ascites Status: Acute Additional Plan Hepatic cirrhosis with nodules: Per CT, unable to distinguish between primary cancer, metastatic disease, regenerative nodules. Per GI, possibility of liver biopsy based on how the nodules look after draining ascitic fluid. Follow ascites analysis results, and hepatitis panel. Liver MR showing LI-RADS 4, probable HCC. Plan for liver biopsy today. Appreciate GI input regarding why liver function tests trending upward? -hepatitis panel negative, TAYLOR & AMA pending KIRTI: cr to 1.9 today. Maybe related to diuresis - will decrease lasix to 20/day today. obtain urine electrolytes Portal vein thrombosis: would benefit from 6 months AC. However as noted by GI, several reasons to defer for now incl possibility of liver biopsy, recent ulcers. 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 Will discuss. Normocytic anemia: patient has been taking high-dose ibuprofen for several years, associated with lower back and hip pain. he was seen at a different facility about a week ago, or so, and they did an EGD which showed that he had multiple ulcers. Iron studies are consistent with anemia of chronic disease, as ferritin is elevated to 781, iron levels and TIBC are low. We will continue IV Protonix 40 daily. Hold off on all nsaids. Refusing follow-up EGD currently. Exertional dyspnea: resolved. G2 DD, preserved EF. in combination with the mild pulmonary edema seen on chest x-ray, And BNP of 914, paints picture of poorly controlled CHF, borderline decompensation. Continue Coreg from home, 12.5 b.i.d. add maria e inhibitor as tolerated by bp. Time Spent With Patient Time with patient: less than 15 minutes Subjective Date/time seen: 01/06/21 08:58 no acute changes continues to grapple with new developments of medical problems Review of Systems Review of Systems: All systems reviewed & are unremarkable except as noted in HPI and below Exam Const: General: no acute distress Neck: Neck: no JVD Resp: Effort & Inspection: normal respiratory effort Auscultation: clear to auscultation bilaterally Cardio: Rate: regular rate Rhythm: regular rhythm GI: GI Palp: Yes Soft to palpation and No Tenderness to palpation present (GI) Objective Data Vital Signs Vital Signs: Vital Signs - 24 hr 01/05/21 10:00 01/05/21 12:00 01/05/21 14:00 Temperature Pulse Rate 90 90 91 Respiratory Rate 16 Blood Pressure 117/93 H Pulse Oximetry 100 01/05/21 16:00 01/05/21 18:00 01/05/21 19:31 Temperature 98.6 F 98 F Pulse Rate 87 94 88 Respiratory Rate 16 18 Blood Pressure 126/90 127/78 Pulse Oximetry 100 100 01/05/21 19:52 01/05/21 20:00 01/05/21 20:47 Temperature Pulse Rate 88 87 88 Respiratory Rate 18 18 Blood Pressure Pulse Oximetry 100 99 01/05/21 22:00 01/05/21 23:19 01/05/21 23:42 Temperature 98.5 F Pulse Rate 95 84 84 Respiratory Rate 18 18 Blood Pressure 129/71 Pulse Oximetry 98 98 01/06/21 00:00 01/06/21 01:35 01/06/21 03:37 Temperature 97.4 F L Pulse Rate 84 83 91 Respiratory Rate 16 Blood Pressure 112/80 Pulse Oximetry 99 01/06/21 04:00 01/06/21 05:53 01/06/21 08:09 Temperature Pulse Rate 85 87 87 Respiratory Rate Blood Pressure Pulse Oximetry Intake/Output Intake/Output: Intake & Output 01/03/21 01/04/21 01/05/21 01/06/21 23:59 23:59 23:59 23:59 Intake Total 150 820 480 100 Output Total 8640 3080 720 200 [facility] -2565 -550 -240 -100 Meds/Results Medications: Acti
--- NOTE | 2021-01-06 09:20 | WPDCDIQUERY2 ---
CDI Query Clarification Request - Exertional dyspnea: G2 DD, preserved EF. in combination with the mild pulmonary edema seen on chest x-ray, And BNP of 914, pains picture of poorly controlled CHF, borderline decompensation. Symptoms greatly improved since diuresing here. documented Please clarify if CHF has been ruled in or ruled out. If ruled in please also document type(systolic, diastolic, both or unable to determine) and acuity (acute, chronic, acute on chronic, unable to determine). <Dayana Rapp RN - Last Filed: 01/06/21 09:23>
--- NOTE | 2021-01-06 09:27 | WPDGIPROGNO ---
Progress Note: A&P Assessment and Plan (1) Liver masses: Code(s): R16.0 - Hepatomegaly, not elsewhere classified Status: Acute Assessment and Plan: Liver masses evident on CT scan. Etiology unclear by the CT scan. Liver biopsy to be performed today. With CT guidance. (2) Cirrhosis: Code(s): K74.60 - Unspecified cirrhosis of liver Status: Acute Assessment and Plan: CT scan suggest cirrhosis. Likely related to prior alcohol use. Additional lab studies pending at this time. Plan to continue supportive care. (3) Ascites: Code(s): R18.8 - Other ascites Status: Acute Assessment and Plan: Patient with ascites noted on initial CT scan. Now status post paracentesis. Plan to continue diuresis. Would decrease Lasix and increase Aldactone long-term. Low-salt diet advised. (4) Portal vein thrombosis: Code(s): I81 - Portal vein thrombosis Status: Acute Assessment and Plan: Portal vein thrombus evident on initial CT scan. Likely chronic. He may benefit from a brief course of anticoagulation after discharge when biopsies are completed (5) Anemia: Qualifiers: Anemia type: unspecified type Qualified Code(s): D64.9 - Anemia, unspecified Code(s): D64.9 - Anemia, unspecified Status: Acute Assessment and Plan: anemia likely multifactorial. Patient gives a recent history of peptic ulcer disease treated at [facility]. Follow-up EGD has been refused. Continue PPI therapy avoid NSAIDs. Iron studies suggest anemia of chronic disease. (6) Peptic ulcer disease: Code(s): K27.9 - Peptic ulcer, site unspecified, unspecified as acute or chronic, without hemorrhage or perforation Status: Acute Assessment and Plan: Peptic ulcer disease. Evaluated at a different institution, [facility]. Plan to keep patient on PPI and avoid NSAIDs. Old records have been requested. Subjective Date/time seen: 01/06/21 09:27 Patient alert and comfortable this morning. Remains less short of breath. No signs of any bleeding. Denies abdominal pain. Review of Systems Review of Systems: All systems reviewed & are unremarkable except as noted in HPI and below Exam Narrative: Physical exam reveals patient be alert. Vital signs stable. HEENT exam reveals no obvious icterus. Lungs are clear. Heart without murmur. Abdomen bowel sounds present soft with mild paddle support megaly. Objective Data Vital Signs Vital Signs: Vital Signs - 24 hr 01/05/21 10:00 01/05/21 12:00 01/05/21 14:00 Temperature Pulse Rate 90 90 91 Respiratory Rate 16 Blood Pressure 117/93 H Pulse Oximetry 100 01/05/21 16:00 01/05/21 18:00 01/05/21 19:31 Temperature 98.6 F 98 F Pulse Rate 87 94 88 Respiratory Rate 16 18 Blood Pressure 126/90 127/78 Pulse Oximetry 100 100 01/05/21 19:52 01/05/21 20:00 01/05/21 20:47 Temperature Pulse Rate 88 87 88 Respiratory Rate 18 18 Blood Pressure Pulse Oximetry 100 99 01/05/21 22:00 01/05/21 23:19 01/05/21 23:42 Temperature 98.5 F Pulse Rate 95 84 84 Respiratory Rate 18 18 Blood Pressure 129/71 Pulse Oximetry 98 98 01/06/21 00:00 01/06/21 01:35 01/06/21 03:37 Temperature 97.4 F L Pulse Rate 84 83 91 Respiratory Rate 16 Blood Pressure 112/80 Pulse Oximetry 99 01/06/21 04:00 01/06/21 05:53 01/06/21 08:09 Temperature Pulse Rate 85 87 87 Respiratory Rate Blood Pressure Pulse Oximetry Intake/Output Intake/Output: Intake & Output 01/03/21 01/04/21 01/05/21 01/06/21 23:59 23:59 23:59 23:59 Intake Total 150 820 480 100 Output Total 4485 1370 720 200 Balance -2565 -550 -240 -100 Meds/Results Medications: Active Medications Generic Name Dose Route Start Last Admin Trade Name Freq PRN Reason Stop Dose Admin Hydrocodone Bitart/Acetaminophen 1 tab 01/03/21 18:33 01/06/21 08:07 Hydrocodone/Acetaminoph
--- NOTE | 2021-01-06 10:59 | PCDIET ---
Nutrition Follow-Up Complete: Nutrition Diagnosis: Inadequate oral intake related to GI bleed as evidenced by reported weight loss and NPO status. Nutrition Goal: Patient to meet estimated nutritional needs. Goal not met. Patient currently NPO for liver biopsy. Diet previously advanced from 01/03-01/06/21 with minimal intake. Recommend adding oral supplement Ensure Enlive (350kcal, 20g protein) upon diet advancement. Last recorded weight is 77.9 kg which is down from last review. Noted patient had 1150mL paracentesis on 01/03/21. Bowel Motility: Last reported BM on 01/03/21. Labs Reviewed: WBC (10.1), RBC (3.68), Hgb (9.6), Hct (28.9), BUN (44), Cr (1.9), PO4 (5.6), Mg (2.4) Meds Noted: [place], Coreg, Lasix, Dilaudid, Protonix, Aldactone Additional Notes: Paracentesis site to right abdomen. No pressure sores documented. Will continue to monitor with same goal. Nutrition Monitoring and Evaluation: Follow up every 3 days.
[2021-01-06] MEDS: HYDROmorphone HCL INJ (*CRX) 1 MG/ML SYR 0.5 MG IV PUSH ×2 (11:36→18:56)
[2021-01-07] VITALS (11 sets, daily range): BP systolic 95–136; BP diastolic 65–85; PULSE 65–86; RESP 16–20; TEMP 36.3–36.8; O2SAT 97–100
[2021-01-07 05:25] LABS: Basophils Percent Auto 0.1 % (0.2-1.2); Eosinophils Percent Auto 0.2 % (0-4.4); Hematocrit 25.5 % (42.0-52.0); Hemoglobin 8.4 g/dL (14.0-18.0); Immature Granulocyte Absolute 0.06 K/mm3 (0.00-0.031); Immature Granulocyte Percent A 0.6 % (0-0.5); Lymphocytes Absolute Auto 1.13 K/mm3 (0.9-3.2); Lymphocytes Percent Auto 11.5 % (18.3-44.2); Mean Corpuscular HGB Conc 32.9 g/dl (32-36); Mean Corpuscular Hemoglobin 26.4 pg (26-34); Mean Corpuscular Volume 80.2 fl (80-100); Mean Platelet Volume 9.8 fl (7.4-10.4); Monocytes Absolute Auto 1.3 K/mm3 (0.1-0.6); Monocytes Percent Auto 13.4 % (2.6-8.5); Neutrophils Absolute Auto 7.3 K/mm3 (1.3-6.7); Neutrophils Percent Auto 74.2 % (45.5-73.1); Nucleated Red Blood Cells Perc 0.4 % (0.0-0.2); Platelet Count Result 297 k/mm3 (150-375); Red Blood Count 3.18 M/mm3 (4.6-6.20); Red Cell Distribution Width 18.6 % (11.5-14.5); White Blood Count 9.8 K/mm3 (4.5-10.0)
[2021-01-07 05:52] LABS: Alanine Aminotransferase 289 U/L (4-50); Albumin Level 3.4 g/dL (3.5-5.1); Alkaline Phosphatase 280 U/L (38-126); Anion Gap 12 mmol/L (8-16); Bilirubin,Total 1.8 mg/dL (0.2-1.3); Blood Urea Nitrogen 50 mg/dL (9-20); Carbon Dioxide 23 mmol/L (22-30); Chloride 103 mmol/L (98-107); Estimated CRCL calculation 37 ml/min; Estimated Glomerular Filt Rate 41; Glucose 82 mg/dL (65-110); Magnesium 2.5 mg/dL (1.6-2.3); Phosphorus 5.5 mg/dL (2.5-4.5); Potassium 4.6 mmol/L (3.4-5.0); Sodium 138 mmol/L (137-145)
[2021-01-07 06:55] LABS: Platelet Estimate Adequate (Adequate)
[2021-01-07 06:56] LABS: Burr Cells 1+ (NORMAL); Hypochromasia 1+ (NORMAL); Poikilocytosis 1+ (NORMAL)
[2021-01-07 08:00] LABS: Aspartate Amino Transferase 1308 U/L (17-59)
[2021-01-07] MEDS: FUROSEMIDE 20 MG TABLET PO (08:57)
[2021-01-07] MEDS: PANTOPRAZOLE SODIUM IV 40 MG VIAL IV PUSH (08:57)
[2021-01-07] MEDS: carvediloL 12.5 MG TABLET PO ×2 (08:57→21:28)
[2021-01-07] MEDS: HYDROcodone/acetaminophen (*CRX) 10-325 MG TABLET 1 TAB PO ×3 (08:57→16:53)
[2021-01-07] MEDS: SPIRONOLACTONE 50 MG TABLET PO ×2 (08:58→16:48)
--- NOTE | 2021-01-07 10:44 | WPDGIPROGNO ---
Progress Note: A&P Assessment and Plan (1) Abnormal CT scan: Code(s): R93.89 - Abnormal findings on diagnostic imaging of other specified body structures Status: Acute Assessment and Plan: CT scan continues to show thickening of the cecum in addition to cirrhosis and portal vein thrombosis. Liver masses. Plan is to pursue colonoscopy after preparation today. Patient seems to agree to this at present. (2) Liver masses: Code(s): R16.0 - Hepatomegaly, not elsewhere classified Status: Acute Assessment and Plan: Patient is status post CT-guided biopsy of the liver masses. Await histology. Radiologist suggests this most consistent with hepatocellular carcinoma. Alpha fetoprotein level pending. CEA was normal. (3) Peptic ulcer disease: Code(s): K27.9 - Peptic ulcer, site unspecified, unspecified as acute or chronic, without hemorrhage or perforation Status: Acute Assessment and Plan: Patient had recent EGD at [facility] because of GI bleeding parent had peptic ulcer disease. May want to do follow-up EGD if he agrees to this tomorrow in conjunction with colonoscopy. (4) Cirrhosis: Code(s): K74.60 - Unspecified cirrhosis of liver Status: Acute Assessment and Plan: Cirrhosis evident by CT scan. Likely related to prior alcohol use. (5) Ascites: Code(s): R18.8 - Other ascites Status: Acute Assessment and Plan: Patient had liter of ascites removed. Peer to be transudative. The cytology ws negative (6) Portal vein thrombosis: Code(s): I81 - Portal vein thrombosis Status: Acute Assessment and Plan: Portal vein thrombus likely chronic. Defer anticoagulation till biopsies are complete. This could be related to cirrhosis or tumor. Subjective Date/time seen: 01/07/21 10:44 Patient alert but very quiet this morning. Hard to engage in a conversation. He denies being short of breath any longer. Had liver biopsy yesterday. Results pending. Repeat CT scan continues to see thickening at the cecum. Discussed with patient. He denies any alterations in bowel habits. No additional bleeding. No abdominal pain. Review of Systems Review of Systems: All systems reviewed & are unremarkable except as noted in HPI and below Exam Narrative: On physical exam patient is alert. Vital signs stable. HEENT exam reveals no icterus. Lungs are clear. Heart without murmur. Abdomen soft nontender with no organomegaly. Objective Data Vital Signs Vital Signs: Vital Signs - 24 hr 01/06/21 12:00 01/06/21 13:07 01/06/21 14:00 Temperature 97.5 F L Pulse Rate 95 94 84 Respiratory Rate 14 18 Blood Pressure 106/79 102/84 Pulse Oximetry 99 100 01/06/21 16:00 01/06/21 18:00 01/06/21 20:00 Temperature 97.5 F L 97.8 F Pulse Rate 8 L 88 98 Respiratory Rate 16 18 Blood Pressure 108/68 105/78 Pulse Oximetry 99 97 01/06/21 20:33 01/06/21 21:36 01/06/21 22:00 Temperature Pulse Rate 98 92 Respiratory Rate Blood Pressure Pulse Oximetry 97 01/06/21 23:19 01/07/21 00:00 01/07/21 02:00 Temperature 98.0 F Pulse Rate 89 86 85 Respiratory Rate 18 18 Blood Pressure 110/70 Pulse Oximetry 97 97 01/07/21 04:00 01/07/21 06:00 01/07/21 08:00 Temperature 97.4 F L 97.3 F L Pulse Rate 83 79 78 Respiratory Rate 20 16 Blood Pressure 136/85 95/73 L Pulse Oximetry 97 100 01/07/21 08:57 Temperature Pulse Rate 82 Respiratory Rate Blood Pressure Pulse Oximetry Intake/Output Intake/Output: Intake & Output 01/04/21 01/05/21 01/06/21 01/07/21 23:59 23:59 23:59 23:59 Intake Total 820 480 100 Output Total 1370 720 675 275 Itfkwqb -550 -240 -575 -275 Meds/Results Medications: Active Medications Generic Name Dose Route Start Last Admin Trade Name Freq PRN Reason Stop Dose Admin Hydrocodone Bitart/Acetaminophen 1 tab 01/03/21 18:33 01/07/21 08:57 [place]
[2021-01-07] MEDS: PEG (High)/E-LYTE SOLN 4,000 ML BTL 4000 ML PO (12:36)
[2021-01-07 14:24] LABS: Ceruloplasmin 56 mg/dL (18-36)
[2021-01-07] MEDS: HYDROmorphone HCL INJ (*CRX) 1 MG/ML SYR 0.5 MG IV PUSH (17:23)
[2021-01-07 17:34] LABS: Creatinine Urine 93.6 mg/dL
[2021-01-07 17:43] LABS: Sodium Urine Random 75 meq/L
--- NOTE | 2021-01-07 19:46 | PM.IMPN ---
Progress Note: A&P Assessment and Plan (1) Abnormal CT scan: Code(s): R93.89 - Abnormal findings on diagnostic imaging of other specified body structures Status: Acute (2) Liver masses: Code(s): R16.0 - Hepatomegaly, not elsewhere classified Status: Acute (3) Peptic ulcer disease: Code(s): K27.9 - Peptic ulcer, site unspecified, unspecified as acute or chronic, without hemorrhage or perforation Status: Acute (4) Ascites: Code(s): R18.8 - Other ascites Status: Acute (5) Portal vein thrombosis: Code(s): I81 - Portal vein thrombosis Status: Acute (6) Cirrhosis: Code(s): K74.60 - Unspecified cirrhosis of liver Status: Acute (7) Anemia: Qualifiers: Anemia type: unspecified type Qualified Code(s): D64.9 - Anemia, unspecified Code(s): D64.9 - Anemia, unspecified Status: Acute (8) Normocytic anemia: Code(s): D64.9 - Anemia, unspecified Status: Acute (9) Acute GI bleeding: Code(s): K92.2 - Gastrointestinal hemorrhage, unspecified Status: Acute (10) Dyspnea: Code(s): R06.00 - Dyspnea, unspecified Status: Acute (11) Severe protein-calorie malnutrition: Code(s): E43 - Unspecified severe protein-calorie malnutrition Status: Acute (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 Per GI, possibility of liver biopsy based on how the nodules look after draining ascitic fluid. Follow ascites analysis results, and hepatitis panel. Liver MR showing LI-RADS 4, probable HCC. Plan for liver biopsy today. Appreciate GI input regarding why liver function tests trending upward? -hepatitis panel negative, TAYLOR & AMA pending KIRTI: cr to 1.9 today. Maybe related to diuresis - will decrease lasix to 20/day today. obtain urine electrolytes Portal vein thrombosis: would benefit from 6 months AC. However as noted by GI, several reasons to defer for now incl possibility of liver biopsy, recent ulcers. 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 Will discuss. Normocytic anemia: patient has been taking high-dose ibuprofen for several years, associated with lower back and hip pain. he was seen at a different facility about a week ago, or so, and they did an EGD which showed that he had multiple ulcers. Iron studies are consistent with anemia of chronic disease, as ferritin is elevated to 781, iron levels and TIBC are low. We will continue IV Protonix 40 daily. Hold off on all nsaids. Refusing follow-up EGD currently. Exertional dyspnea: resolved. G2 DD, preserved EF. in combination with the mild pulmonary edema seen on chest x-ray, And BNP of 914, paints picture of poorly controlled CHF, borderline decompensation. Continue Coreg from home, 12.5 b.i.d. add maria e inhibitor as tolerated by bp. 01/07/21 pt w supsected HCC and mass on colon Patient had NG tube placed today to give GoLYTELY in preparation for colonoscopy tomorrow Unfortunately he has pulled this tube out. After lengthy discussion with patient he agrees to try to drink the GoLYTELY I advised him that if he does not want to seek medical care and with per for supportive care with hospice services this is also a possibility he will consider it and in the morning if he has not had his GoLYTELY will agree to hospice referral cont supportive care liver bx results pending Subjective Date/time seen: 01/07/21 12:46 agrees to NGT but then pulls it out. will consider hospice eval. alternatively will consider drinking bowel prep for procedure in am if he wants to proceed Exam Narrative: 65 yo M w temporal wasting and palpable chest bones Const: General: no acute distress Eyes: General: appearance normal, both eyes and all related structures Neck: Neck: no
--- NOTE | 2021-01-07 20:14 | PC.NURSE ---
patient pulled out dopphoff. he is refusing to have another ng tube placed. he is refusing to drink the prep for surgery. dr joseph is aware of patients condition at this time.
[2021-01-07 23:14] LABS: Mitochondrial (M2) Ab (IgG) <=20.0 U (<=20.0)
[2021-01-08] VITALS (7 sets, daily range): BP systolic 100–114; BP diastolic 55–75; PULSE 63–78; RESP 14–17; TEMP 36.3–36.7; O2SAT 94–100
--- NOTE | 2021-01-08 00:28 | PC.NURSE ---
patient still refusing to drink colon prep. his son called to talk to him and he hung up on him. would not speak to his family.
--- NOTE | 2021-01-08 07:29 | WPDGIPROGNO ---
Progress Note: A&P Assessment and Plan (1) Abnormal CT scan: Code(s): R93.89 - Abnormal findings on diagnostic imaging of other specified body structures Status: Acute Assessment and Plan: Multiple liver masses identified on CT scan. Biopsy performed but histology pending. Hepatocellular cancer suspected. Alpha fetoprotein level pending. Thickening to the cecum identified but patient continues to refuse colonoscopy at this point. (2) Liver masses: Code(s): R16.0 - Hepatomegaly, not elsewhere classified Status: Acute Assessment and Plan: Liver mass is identified on CT consistent with HCC. Histology pending as is alpha fetoprotein level. (3) Peptic ulcer disease: Code(s): K27.9 - Peptic ulcer, site unspecified, unspecified as acute or chronic, without hemorrhage or perforation Status: Acute Assessment and Plan: Patient recently diagnosed with ulcer disease a [facility]. Now on PPI therapy likely this contributes to some of his anemia. Occult blood in stool. Continue PPI and avoid NSAIDs at this point. (4) Cirrhosis: Code(s): K74.60 - Unspecified cirrhosis of liver Status: Acute Assessment and Plan: Cirrhosis identified by CT scan. Could be from prior alcohol use. He does have liver lesions. Alpha fetoprotein and biopsies pending. (5) Portal vein thrombosis: Code(s): I81 - Portal vein thrombosis Status: Acute Assessment and Plan: Portal vein thrombus evident on CT scan could be from tumor or cirrhosis. Anticoagulation being held as workup proceeds. (6) Ascites: Code(s): R18.8 - Other ascites Status: Acute Assessment and Plan: Patient with ascites on CT scan. Now status post paracentesis. Continue diuresis. Will increase Aldactone decrease Lasix as workup progresses. (7) Anemia: Qualifiers: Anemia type: unspecified type Qualified Code(s): D64.9 - Anemia, unspecified Code(s): D64.9 - Anemia, unspecified Status: Acute Assessment and Plan: Anemia with iron indices suggesting chronic disease. He does have ulcers which could contribute as well. Continue to monitor peripherally. Subjective Date/time seen: 01/08/21 07:29 Patient lying in bed comfortable this morning. Not very conversant. Might have some slow mentation. He refused taking preparation for colonoscopy in refuses endoscopy this morning. He has had no additional bleeding. He denies abdominal pain. He states he is breathing adequately. States he is anxious to go home. Review of Systems Review of Systems: ROS unobtainable: Yes unobtainable due to mental status Exam Narrative: Physical exam reveals patient be alert and comfortable at rest. He is anicteric. Lungs are clear. Heart without murmur. Abdomen bowel sounds present soft nontender liver palpable 1 or 2cm below the right costal margin. Objective Data Vital Signs Vital Signs: Vital Signs - 24 hr 01/07/21 08:00 01/07/21 08:57 01/07/21 12:00 Temperature 97.3 F L 97.4 F L Pulse Rate 78 82 78 Respiratory Rate 16 16 Blood Pressure 95/73 L 114/70 Pulse Oximetry 100 100 01/07/21 16:00 01/07/21 20:00 01/07/21 21:28 Temperature 97.9 F 98.2 F Pulse Rate 77 65 65 Respiratory Rate 16 16 Blood Pressure 110/65 95/70 L Pulse Oximetry 100 100 01/07/21 23:45 01/08/21 04:00 01/08/21 05:00 Temperature 97.8 F 97.3 F L Pulse Rate 82 78 Respiratory Rate 16 16 Blood Pressure 136/78 114/75 Pulse Oximetry 99 100 99 Intake/Output Intake/Output: Intake & Output 01/05/21 01/06/21 01/07/21 01/08/21 23:59 23:59 23:59 23:59 Intake Total 480 100 120 Output Total 720 675 350 Balance -240 -575 -230 Meds/Results Medications: Active Medications Generic Name Dose Route Start Last Admin Trade Name Freq PRN Reason Stop Dose Admin Hydrocodone Bitart/Acetaminophen 1 tab 01/03/21 18:33 01/07/21 16:53 Baggs
[2021-01-08 09:26] LABS: Ammonia 12 umol/L (9-30)
[2021-01-08] MEDS: FUROSEMIDE 20 MG TABLET PO (11:14)
[2021-01-08] MEDS: SPIRONOLACTONE 50 MG TABLET PO ×2 (11:14→18:16)
[2021-01-08] MEDS: carvediloL 12.5 MG TABLET PO ×2 (11:14→20:41)
[2021-01-08] MEDS: PANTOPRAZOLE SODIUM IV 40 MG VIAL IV PUSH (11:14)
--- NOTE | 2021-01-08 17:26 | PDONCCN ---
HPI - Date of Consult Date/Time: 01/08/21 17:26 Requesting Physician: Lanette Jimenez MD Primary Care Provider: Mark Helton MD - Consult Narrative Reason for consult: Hepatocellular carcinoma Narrative: Bam Jeffries is a 65 year old male who is a poor historian and also confused came into the hospital with 3 days worsening of dyspnea and shaking. He denies any abdominal pain. He denies any diarrhea and constipation. No melena hematochezia. CT abdomen and pelvis showed cirrhosis of the liver with hepatic nodules along with portal venous thrombosis and moderate amount of ascites along with focal wall thickening at the cecum. MRI showed cirrhosis with multiple hepatic masses primarily in the right hepatic lobe consistent with likely hepatocellular carcinoma. Patient also had paracentesis done with 1150 mL of fluid removed. Liver biopsy was done on January 06 that showed poorly differentiated hepatocellular carcinoma. Review of Systems - Review of Systems All systems reviewed & are unremarkable except as noted in HPI and [facility] Family History: Family History (Last Updated 01/02/21 @ 06:47 by Jacqueline Pan RN) Other Unknown family medical history - Social History Social History: Social History (Last Reviewed 01/02/21 @ 02:35 by Prakash Dumont MD) Alcohol Use: Alcohol intake: former Substance Use: Substance use: never Others: Spiritual care concerns: No Smoking Status: Smoking status: Never smoker Meds Home Medications Medication Instructions Recorded Confirmed Type carvedilol 12.5 mg PO BID 01/02/21 01/02/21 History clonidine HCl 0.3 mg PO BID 01/02/21 01/02/21 History meclizine 12.5 mg PO TID 01/02/21 01/02/21 History ondansetron HCl 4 mg PO BID PRN 01/02/21 01/02/21 History Allergies Allergy/AdvReac Type Severity Reaction Status Date / Time amlodipine AdvReac Unknown Verified 01/02/21 06:12 lisinopril AdvReac Unknown Verified 01/02/21 06:12 Results - Labs CBC & Chem 7: 01/07/21 05:16 01/07/21 05:16 Assessment and Plan - Additional Plan Poorly differentiated hepatocellular carcinoma status post ultrasound-guided liver biopsy done on January 06, 2021. Patient is a 65-year-old male who is a poor historian and also slightly confused. Apparently patient has no other medical conditions. He came in with shakiness along with shortness of breath and dyspnea on exertion. CT scan and MRI abdomen finding noted. I will order alpha-fetoprotein. I have provided him my office information. I asked him to bring his family with him for her appointment with me in the office. He may be a candidate for sorafenib. Patient also need to have colonoscopy done due to thickening of cecum. I have answered all the questions to patient's satisfaction. Patient will follow with me in the office. I have also discussed this case with the hospitalist. Exam - Vital Signs Vital Signs - 24 hr 01/07/21 20:00 01/07/21 21:28 01/07/21 23:45 Temperature 36.8 C 36.6 C Pulse Rate 65 65 82 Respiratory Rate 16 16 Blood Pressure 95/70 L 136/78 Pulse Oximetry 100 99 01/08/21 04:00 01/08/21 05:00 01/08/21 09:45 Temperature 36.3 C L Pulse Rate 78 Respiratory Rate 16 Blood Pressure 114/75 Pulse Oximetry 100 99 94 01/08/21 14:00 Temperature Pulse Rate 64 Respiratory Rate 14 Blood Pressure 105/55 L Pulse Oximetry 100 - Exam HEENT: EOMI, PERRLA, mucous membranes moist and pink Neck: supple. No: JVD Lungs: clear to auscultation, normal air movement Heart: no murmurs, gallops, or rubs, regular rhythm, regular rate Abdomen: abdomen soft, normal bowel sounds, distended Extremities: normal pulses Integumentary: no abnormalities Psychological: confused - Lab Results Laboratory Last Values WBC 9.8 K/mm3 (4.5-10.0) 01/07/21 05:16 RBC 3.18 M/mm3 (4.6-6.20) L 01/07/21 05:16 Hg
--- NOTE | 2021-01-08 19:18 | PM.IMPN ---
Progress Note: A&P Assessment and Plan (1) Abnormal CT scan: Code(s): R93.89 - Abnormal findings on diagnostic imaging of other specified body structures Status: Acute (2) Liver masses: Code(s): R16.0 - Hepatomegaly, not elsewhere classified Status: Acute (3) Peptic ulcer disease: Code(s): K27.9 - Peptic ulcer, site unspecified, unspecified as acute or chronic, without hemorrhage or perforation Status: Acute (4) Ascites: Code(s): R18.8 - Other ascites Status: Acute (5) Portal vein thrombosis: Code(s): I81 - Portal vein thrombosis Status: Acute (6) Cirrhosis: Code(s): K74.60 - Unspecified cirrhosis of liver Status: Acute (7) Anemia: Qualifiers: Anemia type: unspecified type Qualified Code(s): D64.9 - Anemia, unspecified Code(s): D64.9 - Anemia, unspecified Status: Acute (8) Normocytic anemia: Code(s): D64.9 - Anemia, unspecified Status: Acute (9) Acute GI bleeding: Code(s): K92.2 - Gastrointestinal hemorrhage, unspecified Status: Acute (10) Dyspnea: Code(s): R06.00 - Dyspnea, unspecified Status: Acute (11) Severe protein-calorie malnutrition: Code(s): E43 - Unspecified severe protein-calorie malnutrition Status: Acute (12) Cancer cachexia: Code(s): R64 - Cachexia Status: Acute (13) Hepatocellular carcinoma: Code(s): C22.0 - Liver cell carcinoma Status: Acute Additional Plan 01/06/21 Hepatic cirrhosis with nodules: Per CT, unable to distinguish between primary cancer, metastatic disease, regenerative nodules. Per GI, possibility of liver biopsy based on how the nodules look after draining ascitic fluid. Follow ascites analysis results, and hepatitis panel. Liver MR showing LI-RADS 4, probable HCC. Plan for liver biopsy today. Appreciate GI input regarding why liver function tests trending upward? -hepatitis panel negative, TAYLOR & AMA pending KIRTI: cr to 1.9 today. Maybe related to diuresis - will decrease lasix to 20/day today. obtain urine electrolytes Portal vein thrombosis: would benefit from 6 months AC. However as noted by GI, several reasons to defer for now incl possibility of liver biopsy, recent ulcers. 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 Will discuss. Normocytic anemia: patient has been taking high-dose ibuprofen for several years, associated with lower back and hip pain. he was seen at a different facility about a week ago, or so, and they did an EGD which showed that he had multiple ulcers. Iron studies are consistent with anemia of chronic disease, as ferritin is elevated to 781, iron levels and TIBC are low. We will continue IV Protonix 40 daily. Hold off on all nsaids. Refusing follow-up EGD currently. Exertional dyspnea: resolved. G2 DD, preserved EF. in combination with the mild pulmonary edema seen on chest x-ray, And BNP of 914, paints picture of poorly controlled CHF, borderline decompensation. Continue Coreg from home, 12.5 b.i.d. add maria e inhibitor as tolerated by bp. 01/07/21 pt w supsected HCC and mass on colon Patient had NG tube placed today to give GoLYTELY in preparation for colonoscopy tomorrow Unfortunately he has pulled this tube out. After lengthy discussion with patient he agrees to try to drink the GoLYTELY I advised him that if he does not want to seek medical care and with per for supportive care with hospice services this is also a possibility he will consider it and in the morning if he has not had his GoLYTELY will agree to hospice referral cont supportive care liver bx results pending 01/08/2021 Liver biopsy revealed hepatocellular carcinoma this is consistent with patient's history Patient will be discharged tomorrow when family can pick him up between 2 and 4:00 p.m.. Family of the patient will call to oncologist office to set up an appointment for Mark after dischargeBo nolan
[2021-01-08 20:56] LABS: Glucose Peritoneal Fluid 95 mg/dL; LDH Peritoneal Fluid 88 U/L (<63); Total Protein Peritoneal Fluid 3.4 g/dL
[2021-01-09 05:31] VITALS: BP 103/65; PULSE 65; RESP 18; TEMP 36.3; O2SAT 100
--- NOTE | 2021-01-09 08:19 | PCPTNOTE ---
attempted PT evaluation at 810; pt in bed with covers over his head, refused PT, don't feel like it ; unable to convince him to get OOB to eat breakfast; discussed pt with BECCA Falk; she reports pt is now on Hospice and going to go home with family.
--- NOTE | 2021-01-09 09:22 | WPDGIPROGNO ---
Progress Note: A&P Assessment and Plan (1) Hepatocellular carcinoma: Code(s): C22.0 - Liver cell carcinoma Status: Acute Assessment and Plan: Liver biopsy confirmed confirms hepatocellular carcinoma. Appreciate Oncology input. Would recommend follow-up with Oncology consider chemotherapy if he is a candidate. (2) Cancer cachexia: Code(s): R64 - Cachexia Status: Acute Assessment and Plan: Patient shows significant proximal muscle weakness and cachexia likely related to his tumor. (3) Abnormal CT scan: Code(s): R93.89 - Abnormal findings on diagnostic imaging of other specified body structures Status: Acute Assessment and Plan: CT scan showed liver masses now known to be a hepatocellular cancer on presentation. Question of cecal wall thickening identified. Colonoscopy attempted on several occasions. Patient continues to refuse this. This remains an unknown whether this cecal thickening is of any clinical significance. (4) Peptic ulcer disease: Code(s): K27.9 - Peptic ulcer, site unspecified, unspecified as acute or chronic, without hemorrhage or perforation Status: Acute Assessment and Plan: Patient known to have peptic ulcer disease from prior EGD at [facility]. Plan to continue PPI therapy. (5) Portal vein thrombosis: Code(s): I81 - Portal vein thrombosis Status: Acute Assessment and Plan: Portal vein thrombus identified on initial CT scan. Likely related to tumor. Would consider anticoagulation. But with patient's current level of apparent confusion would defer this as he may be a fall risk. (6) Cirrhosis: Code(s): K74.60 - Unspecified cirrhosis of liver Status: Acute Assessment and Plan: Patient found to have cirrhosis on initial CT scan. This is likely from prior alcohol use. He claims to be abstinent currently. Supportive care as described. He is on low-dose diuretics for ascites. Subjective Date/time seen: 01/09/21 09:22 Patient alert but not very conversant this morning. Denies abdominal pain. Reports shortness of breath has improved. No obvious signs of bleeding described. Review of Systems Review of Systems: All systems reviewed & are unremarkable except as noted in HPI and below Exam Narrative: Physical exam reveals patient be alert. No significant icterus apparent. He has some cachexia. Lungs are clear. Heart without murmur. Abdomen bowel sounds present soft. Liver edge palpable and smooth. Extremities without clubbing cyanosis or edema. Objective Data Vital Signs Vital Signs: Vital Signs - 24 hr 01/08/21 09:45 01/08/21 14:00 01/08/21 20:00 Temperature Pulse Rate 64 Respiratory Rate 14 Blood Pressure 105/55 L Pulse Oximetry 94 100 100 01/08/21 20:41 01/08/21 21:48 01/09/21 05:31 Temperature 98.1 F 97.3 F L Pulse Rate 67 63 65 Respiratory Rate 17 18 Blood Pressure 100/61 103/65 Pulse Oximetry 100 100 Intake/Output Intake/Output: Intake & Output 01/06/21 01/07/21 01/08/21 01/09/21 23:59 23:59 23:59 23:59 Intake Total 100 120 150 Output Total 675 350 Balance -575 -230 150 Meds/Results Medications: Active Medications Generic Name Dose Route Start Last Admin Trade Name Freq PRN Reason Stop Dose Admin Hydrocodone Bitart/Acetaminophen 1 tab 01/03/21 18:33 01/07/21 16:53 Hydrocodone/Acetaminophen (*Crx) 10-325 Mg Tablet PO 1 tab Q4H PRN Administration Pain Rated 4-6 Carvedilol 12.5 mg 01/02/21 21:00 01/08/21 20:41 Carvedilol 12.5 Mg Tablet PO 12.5 mg Q12HR JEFFRY Administration Furosemide 20 mg 01/07/21 08:00 01/08/21 11:14 Furosemide 20 Mg Tablet PO 20 mg DAILY@0800 JEFFRY Administration Hydromorphone HCl 0.5 mg 01/04/21 14:06 01/07/21 17:23 Hydromorphone Hcl Inj (*Crx) 1 Mg/Ml Syr IV PUSH 0.5 mg Q4HR PRN Administration Pain Rated 7-10 Ondansetron HCl 4 mg
[2021-01-09 09:24] VITALS: PULSE 70
[2021-01-09] MEDS: carvediloL 12.5 MG TABLET PO ×2 (09:24→20:24)
[2021-01-09] MEDS: SPIRONOLACTONE 50 MG TABLET PO (09:24)
[2021-01-09] MEDS: PANTOPRAZOLE SODIUM IV 40 MG VIAL IV PUSH (09:24)
[2021-01-09] MEDS: FUROSEMIDE 20 MG TABLET PO (09:24)
--- NOTE | 2021-01-09 10:41 | PCOTNOTE ---
Attempted to see patient this am, however upon entering patient sleeping with covers pulled overhead. Addressed patient and he declined therapy shaking head under covers.
--- NOTE | 2021-01-09 11:15 | PCNFU ---
Nutrition Follow-Up Complete: Inadequate oral intake related to GI bleed as evidenced by reported weight loss and NPO status. Goal: Patient to meet estimated nutritional needs. Patient has limited progress with goal. No new goal. Pt current nutrition is Regular. Last recorded weight is 77 kg, down from 78.9 on 01/04 admit weight 90 kg. unsure of accuracy of bed weight. Bowel Motility:+BM reported 01/08 Labs Reviewed:no new labs to report. Meds Noted:Lasix, Coreg,Aldactone Additional Notes: Nutrition follow up. Patient has hospice consult today. No intake has been reported. Liver biopsy showing hepatocellular carcinoma. Oncology and GI following. No further nutritional interventions needed. Monitoring: Follow up every 7 days for LOS.
[2021-01-09 14:00] VITALS: BP 82/43; PULSE 68; RESP 14; TEMP 36.2; O2SAT 100
[2021-01-09] MEDS: SODIUM CHLORIDE 0.9% IV 500 ML IV CONT (15:01)
--- NOTE | 2021-01-09 15:56 | P.PNIM_ITS ---
Progress Note: A&P Assessment and Plan (1) Abnormal CT scan: Code(s): R93.89 - Abnormal findings on diagnostic imaging of other specified body structures Status: Acute (2) Liver masses: Code(s): R16.0 - Hepatomegaly, not elsewhere classified Status: Acute (3) Peptic ulcer disease: Code(s): K27.9 - Peptic ulcer, site unspecified, unspecified as acute or chronic, without hemorrhage or perforation Status: Acute (4) Ascites: Code(s): R18.8 - Other ascites Status: Acute (5) Portal vein thrombosis: Code(s): I81 - Portal vein thrombosis Status: Acute (6) Cirrhosis: Code(s): K74.60 - Unspecified cirrhosis of liver Status: Acute (7) Anemia: Qualifiers: Anemia type: unspecified type Qualified Code(s): D64.9 - Anemia, unspecified Code(s): D64.9 - Anemia, unspecified Status: Acute (8) Normocytic anemia: Code(s): D64.9 - Anemia, unspecified Status: Acute (9) Acute GI bleeding: Code(s): K92.2 - Gastrointestinal hemorrhage, unspecified Status: Acute (10) Dyspnea: Code(s): R06.00 - Dyspnea, unspecified Status: Acute (11) Severe protein-calorie malnutrition: Code(s): E43 - Unspecified severe protein-calorie malnutrition Status: Acute (12) Cancer cachexia: Code(s): R64 - Cachexia Status: Acute (13) Hepatocellular carcinoma: Code(s): C22.0 - Liver cell carcinoma Status: Acute Additional Plan 01/06/21 Hepatic cirrhosis with nodules: Per CT, unable to distinguish between primary cancer, metastatic disease, regenerative nodules. Per GI, possibility of liver biopsy based on how the nodules look after draining ascitic fluid. Follow ascites analysis results, and hepatitis panel. Liver MR showing LI-RADS 4, probable HCC. Plan for liver biopsy today. Appreciate GI input regarding why liver function tests trending upward? -hepatitis panel negative, TAYLOR & AMA pending KIRTI: cr to 1.9 today. Maybe related to diuresis - will decrease lasix to 20/day today. obtain urine electrolytes Portal vein thrombosis: would benefit from 6 months AC. However as noted by GI, several reasons to defer for now incl possibility of liver biopsy, recent ulcers. 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 Will discuss. Normocytic anemia: patient has been taking high-dose ibuprofen for several years, associated with lower back and hip pain. he was seen at a different facility about a week ago, or so, and they did an EGD which showed that he had multiple ulcers. Iron studies are consistent with anemia of chronic disease, as ferritin is elevated to 781, iron levels and TIBC are low. We will continue IV Protonix 40 daily. Hold off on all nsaids. Refusing follow-up EGD currently. Exertional dyspnea: resolved. G2 DD, preserved EF. in combination with the mild pulmonary edema seen on chest x-ray, And BNP of 914, paints picture of poorly controlled CHF, borderline decompensation. Continue Coreg from home, 12.5 b.i.d. add maria e inhibitor as tolerated by bp. 01/07/21 pt w supsected HCC and mass on colon Patient had NG tube placed today to give GoLYTELY in preparation for colonoscopy tomorrow Unfortunately he has pulled this tube out. After lengthy discussion with patient he agrees to try to drink the GoLYTELY I advised him that if he does not want to seek medical care and with per for supportive care with hospice services this is also a possibility he will consider it and in the morning if he has not had his GoLYTELY will agree to h
[2021-01-09 18:00] VITALS: BP 109/74; PULSE 67; RESP 16; O2SAT 99
[2021-01-09 20:24] VITALS: PULSE 67
[2021-01-09] MEDS: HYDROcodone/acetaminophen (*CRX) 10-325 MG TABLET 1 TAB PO (20:24)
[2021-01-09 22:00] VITALS: BP 100/56; PULSE 64; RESP 17; TEMP 36.3; O2SAT 100
[2021-01-10 05:23] VITALS: BP 100/45; PULSE 61; RESP 17; TEMP 36.4; O2SAT 100
[2021-01-10 08:46] VITALS: PULSE 64
[2021-01-10] MEDS: carvediloL 12.5 MG TABLET PO (08:46)
--- NOTE | 2021-01-10 10:06 | PM.DS ---
DS: Admitting Diagnosis Discharge Date 01/10/21 Admitting Diagnosis Anemia Portal vein thrombosis Hepatic cirrhosis with nodules Exertional dyspnea Thickening of the cecal wall DS: Discharge Diagnosis Discharge Diagnosis (1) Abnormal CT scan: Code(s): R93.89 - Abnormal findings on diagnostic imaging of other specified body structures Status: Acute (2) Liver masses: Code(s): R16.0 - Hepatomegaly, not elsewhere classified Status: Acute (3) Peptic ulcer disease: Code(s): K27.9 - Peptic ulcer, site unspecified, unspecified as acute or chronic, without hemorrhage or perforation Status: Acute (4) Ascites: Code(s): R18.8 - Other ascites Status: Acute (5) Portal vein thrombosis: Code(s): I81 - Portal vein thrombosis Status: Acute (6) Cirrhosis: Code(s): K74.60 - Unspecified cirrhosis of liver Status: Acute (7) Anemia: Qualifiers: Anemia type: unspecified type Qualified Code(s): D64.9 - Anemia, unspecified Code(s): D64.9 - Anemia, unspecified Status: Acute (8) Normocytic anemia: Code(s): D64.9 - Anemia, unspecified Status: Acute (9) Acute GI bleeding: Code(s): K92.2 - Gastrointestinal hemorrhage, unspecified Status: Acute (10) Dyspnea: Code(s): R06.00 - Dyspnea, unspecified Status: Acute (11) Severe protein-calorie malnutrition: Code(s): E43 - Unspecified severe protein-calorie malnutrition Status: Acute (12) Cancer cachexia: Code(s): R64 - Cachexia Status: Acute (13) Hepatocellular carcinoma: Code(s): C22.0 - Liver cell carcinoma Status: Acute Assessment and Plan: 01/06/21 Hepatic cirrhosis with nodules: Per CT, unable to distinguish between primary cancer, metastatic disease, regenerative nodules. Per GI, possibility of liver biopsy based on how the nodules look after draining ascitic fluid. Follow ascites analysis results, and hepatitis panel. Liver MR showing LI-RADS 4, probable HCC. Plan for liver biopsy today. Appreciate GI input regarding why liver function tests trending upward? -hepatitis panel negative, TAYLOR & AMA pending KIRTI: cr to 1.9 today. Maybe related to diuresis - will decrease lasix to 20/day today. obtain urine electrolytes Portal vein thrombosis: would benefit from 6 months AC. However as noted by GI, several reasons to defer for now incl possibility of liver biopsy, recent ulcers. 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 Will discuss. Normocytic anemia: patient has been taking high-dose ibuprofen for several years, associated with lower back and hip pain. he was seen at a different facility about a week ago, or so, and they did an EGD which showed that he had multiple ulcers. Iron studies are consistent with anemia of chronic disease, as ferritin is elevated to 781, iron levels and TIBC are low. We will continue IV Protonix 40 daily. Hold off on all nsaids. Refusing follow-up EGD currently. Exertional dyspnea: resolved. G2 DD, preserved EF. in combination with the mild pulmonary edema seen on chest x-ray, And BNP of 914, paints picture of poorly controlled CHF, borderline decompensation. Continue Coreg from home, 12.5 b.i.d. add maria e inhibitor as tolerated by bp. 01/07/21 pt w supsected HCC and mass on colon Patient had NG tube placed today to give GoLYTELY in preparation for colonoscopy tomorrow Unfortunately he has pulled this tube out. After lengthy discussion with patient he agrees to try to drink the GoLYTELY I advised him that if he does not want to seek medical care and with per for supportive care with hospice services this is also a possibility he will consider it and in the morning if he has not had his GoLYTELY will agree to hospice referral cont supportive care liver bx results pending 01/08/2021 Liver biopsy revealed hepatocellular carcinoma this is consistent with patient's history
[2021-01-11 22:10] LABS: Amylase Peritoneal Fluid <10 U/L
== END 2021-01-10 15:00 | disposition hospice, home (50) | DRG 435 ==
LOC: ANHED 01-02 04:58 → ANHIMU 01-02 05:31 → ANH3MEDSUR 01-10 10:06 → ANHIMU 01-13 13:23
PROVIDERS: Emergency Medicine; Internal Medicine; Internal Medicine Gastroenterology; Admitting Provider Internal Medicine; Emergency Provider Emergency Medicine; PCP Otolaryngology; Visit Provider Internal Medicine Critical Care Medicine
DX: C22.0 Liver cell carcinoma (principal); I81 Portal vein thrombosis; I50.33 Acute on chronic diastolic (congestive) heart failure; E43 Unspecified severe protein-calorie malnutrition; K27.4 Chronic or unspecified peptic ulcer, site unspecified, with hemorrhage; R18.8 Other ascites; N17.9 Acute kidney failure, unspecified; R64 Cachexia; D63.8 Anemia in other chronic diseases classified elsewhere; K74.60 Unspecified cirrhosis of liver; Z68.23 Body mass index [BMI] 23.0-23.9, adult; I95.9 Hypotension, unspecified; Z53.29 Procedure and treatment not carried out because of patient's decision for other reasons
CPT/HCPCS: 36415; 43752; 47000; 49083; 71045; 71275; 74177; 74183; 76942; 80048; 80053; 80074; 80076; 82040; 82104; 82105; 82140; 82150; 82378; 82390; 82570; 82607; 82728; 82746; 82945; 82948; 83010; 83520; 83540; 83550; 83605; 83615; 83690; 83735; 83880; 84100; 84157; 84300; 84443; 84466; 84484; 85014; 85018; 85025; 85046; 85610; 85730; 86038; 86850; 86900; 86901; 87070; 87075; 87076; 87205; 87536; 88104; 88108; 88305; 88307; 88342; 89051; 93005; 93306; 96374; 96375; 96376; 97161; 97166; 99285; A9270; A9577; C9113; G0378; J1170; J1940; J7040; Q9967